=== PATIENT | female | born 1980 | race Caucasian/White ===

== ENCOUNTER → 2020-10-23 14:15 | Outpatient (CLI) | payer OTHER, SELFPAY ==
--- NOTE | ~2020-10-23 | MM_ITS ---
EXAMINATION: MM screening gary BI w ameya HISTORY: Screening mammogram TECHNIQUE: Craniocaudal and mediolateral oblique 3-D tomosynthesis images were obtained and synthetic 2-D images were generated. CAD analysis was submitted and interpreted. COMPARISON: No prior mammogram is available for comparison at this institution. BREAST PARENCHYMAL COMPOSITION: There are scattered areas of fibroglandular density. FINDINGS: There is no evidence of suspicious mass, calcification, or architectural distortion to sugg est malignancy in either breast. There has been no suspicious interval change. IMPRESSION: 1. No mammographic evidence of malignancy. 2. Recommend routine screening mammography in one year. BI-RADS Category 1: Negative Reviewed, dictated and finalized at location A.
== END ==
PROVIDERS: Visit Provider Student in an Organized Health Care Education/Training Program
DX: Z12.31 Encounter for screening mammogram for malignant neoplasm of breast (principal)
CPT/HCPCS: 77063; 77067

== ENCOUNTER → 2021-10-17 07:48 | Outpatient (CLI) | payer OTHER, SELFPAY ==
--- NOTE | ~2021-10-17 | MMUS_ITS ---
EXAMINATION: MM diagnostic gary BI w ameya, US axilla BI HISTORY: Bilateral axillary lymphadenopathy TECHNIQUE: Craniocaudal, mediolateral, and mediolateral oblique 3-D tomosynthesis images of the breas ts were performed and synthetic 2-D images were generated. CAD analysis was submitted and interpreted . High resolution bilateral axillary ultrasound was performed. COMPARISON: 10/23/2020 BREAST PARENCHYMAL COMPOSITION: There are scattered areas of fibroglandular density. FINDINGS: MAMMOGRAPHIC FINDINGS: There is no suspicious mass, calcification, or architectural distortion in either breast to suggest malignancy. There has been no suspicious interval change. No pathologically enlarged nodes are identi fied. ULTRASOUND: No suspicious cystic or solid mass or pathologically enlarged lymph nodes are identified. One small h ypoechoic area in the right axilla has an appearance suggestive of a mildly inflamed sebaceous cyst. IMPRESSION: 1. No suspicious mammographic or sonographic correlate is identified for the reported palpable abnorm ality of concern. Further evaluation at this time should be based on clinical assessment. Continued f ollow-up physical examination is recommended. 2. Recommend routine screening mammography in one year. BI-RADS Category 2: Benign finding(s). Reviewed, dictated and finalized at location A. IMPRESSION: 1. No suspicious mammographic or sonographic correlate is identified for the re ported palpable abnormality of concern. Further evaluation at this time should be based on clinical assessment. Continued follow-up physical examination is re commended. 2. Recommend routine screening mammography in one year. BI-RADS Category 2: Benign finding(s).
== END ==
PROVIDERS: PCP Family Medicine; Visit Provider Nurse Practitioner Family
DX: R59.0 Localized enlarged lymph nodes (principal)
CPT/HCPCS: 76882; 77062; 77066; G0279

== ENCOUNTER 2022-02-07 10:15 | Outpatient (CLI) | payer OTHER, SELFPAY ==
--- NOTE | 2022-02-07 11:30 | NEURO_ITS ---
Impression: # Complains of numbness of hands. # Left Carpal Tunnel Syndrome. # Normal needle/EMG exam. Nerve Conduction Studies Anti Sensory Summary Table Stim Site NR Peak (ms) P-T Amp (?V) Site1 Site2 Delta-P (ms) Dist (cm) Alfonso (m/s) Left Median Anti Sensory (2-3nd Digit) Wrist 4.3 28.7 Wrist 2-3nd Digit 4.3 14.0 33 Wrist 4.5 37.2 Wrist 2-3nd Digit 4.3 14.0 33 Right Median Anti Sensory (2-3nd Digit) Wrist 3.3 74.9 Wrist 2-3nd Digit 3.3 14.0 42 Wrist 3.4 55.4 Wrist 2-3nd Digit 3.3 14.0 42 Left Radial Anti Sensory (Base 1st Digit) Wrist 1.9 24.2 Wrist Base 1st Digit 1.9 0.0 Right Radial Anti Sensory (Base 1st Digit) Wrist 2.1 28.5 Wrist Base 1st Digit 2.1 0.0 Left Ulnar Anti Sensory (5th Digit) Wrist 2.3 59.6 Wrist 5th Digit 2.3 14.0 61 Right Ulnar Anti Sensory (5th Digit) Wrist 1.9 41.2 Wrist 5th Digit 1.9 14.0 74 Motor Summary Table Stim Site NR Onset (ms) O-P Amp (mV) Site1 Site2 Delta-0 (ms) Dist (cm) Alfonso (m/s) Left Median Motor (Abd Poll Brev) Wrist 4.5 1.9 Elbow Wrist 5.5 30.0 55 Elbow 10.0 2.2 Right Median Motor (Abd Poll Brev) Wrist 3.4 3.5 Elbow Wrist 5.2 29.0 56 Elbow 8.6 2.4 Left Ulnar Motor (Abd Dig Minimi) Wrist 2.1 9.8 A Elbow Wrist 5.1 28.0 55 A Elbow 7.2 8.9 Right Ulnar Motor (Abd Dig Minimi) Wrist 2.3 8.8 A Elbow Wrist 5.1 29.0 57 A Elbow 7.4 7.8 F Wave Studies NR F-Lat (ms) L-R F-Lat (ms) Left Median (Mrkrs) (Abd Poll Brev) 27.50 0.00 Right Median (Mrkrs) (Abd Poll Brev) 27.50 0.00 Left Ulnar (Mrkrs) (Abd Dig Min) 26.38 0.63 Right Ulnar (Mrkrs) (Abd Dig Min) 25.74 0.63 EMG Side Muscle Nerve Root Ins Act Fibs Amp Dur Recrt Comment Right 1stDorInt Ulnar C8-T1 Nml Nml Nml Nml Nml Right Ext Indicis Radial (Post Int) C7-8 Nml Nml Nml Nml Nml Right Ext Digitorum Radial (Post Int) C7-8 Nml Nml Nml Nml Nml Right BrachioRad Radial C5-6 Nml Nml Nml Nml Nml Right PronatorTeres Median C6-7 Nml Nml Nml Nml Nml Right Abd Poll Brev Median C8-T1 Nml Nml Nml Nml Nml Left 1stDorInt Ulnar C8-T1 Nml Nml Nml Nml Nml Left Ext Indicis Radial (Post Int) C7-8 Nml Nml Nml Nml Nml Left Ext Digitorum Radial (Post Int) C7-8 Nml Nml Nml Nml Nml Left BrachioRad Radial C5-6 Nml Nml Nml Nml Nml Left PronatorTeres Median C6-7 Nml Nml Nml Nml Nml Left Abd Poll Brev Median C8-T1 Nml Nml Nml Nml Nml MTDD
== END 2022-02-07 10:16 | disposition home or self-care (01) ==
PROVIDERS: PCP Family Medicine; Visit Provider Nurse Practitioner Family
DX: R20.2 Paresthesia of skin (principal); G56.22 Lesion of ulnar nerve, left upper limb
CPT/HCPCS: 95886; 95911

== ENCOUNTER 2022-04-15 08:42 | Emergency (ER) | payer OTHER, SELFPAY ==
--- NOTE | 2022-04-15 08:51 | ED.URI ---
HPI - URI/Sore Throat General Chief Complaint: Upper Respiratory Infection Stated Complaint: sore throat,cough,congestion,fever Time Seen by Provider: 04/15/22 08:51 Source: patient, RN notes reviewed and old records reviewed Mode of arrival: ambulatory Limitations: no limitations History of Present Illness HPI Narrative: 41-year-old female presents to the [facility] with complaints of sore throat, cough, congestion and fever since Friday, 3 days. Patient reports a fever of 102 and it goes away with Tylenol. Has taken some decongestants. Denies any chest pain or abdominal pain Patient has drainage from the left eye. Normally wears contact lenses but has not been since symptoms started. MD elicited complaint: fever, cough and sore throat Onset (ago): day(s) (3) Able to tolerate fluids by mouth: Yes Associated symptoms: fever and cough Related Data Home Medications Medication Instructions Recorded Confirmed melatonin 5 mg capsule mg PO QHS PRN 10/11/20 04/04/22 omeprazole 10 mg capsule,delayed 10 mg PO DAILY 10/11/20 04/04/22 release Allergies Allergy/AdvReac Type Severity Reaction Status Date / Time No Known Allergies Allergy Verified 04/04/22 07:55 Review of Systems Review of Systems: All systems reviewed & are unremarkable except as noted in HPI and below Constitutional: Constitutional: Reports as per HPI, Denies chills and Reports fever(s) Eyes: Eyes: Reports no additional eye complaints ENT: Reports as per HPI, Reports nasal congestion and Reports sore throat Cardiovascular: Cardiovascular: Reports no additional cardiovascular complaints Respiratory: Respiratory: Reports as per HPI and Reports cough Gastrointestinal: Gastrointestinal: Reports no additional gastrointestinal complaints Musculoskeletal: Musculoskeletal: Reports no additional musculoskeletal complaints Integumentary/Breasts: Skin/Breast: Reports system reviewed and no additional complaints, except as docu Neurologic: Reports system reviewed and no additional complaints, except as documented Psychiatric: Psychiatric: Reports no additional psychiatric complaints Allergic/Immunologic: Allergic/Immunologic: Reports no additional allergic/immunologic complaints PMFSH Past Medical History Medical History Carpal tunnel syndrome, left Environmental allergies Fast heart beat Poor nutrition Surgical History Surgical History History of appendectomy Family History Family History Father Diabetes mellitus Hypertension Heart disease Mother Hypertension Depression Heart disease Diabetes mellitus Sibling Depression Hypertension Grandparent Alcoholism Depression Cerebrovascular accident Social History Social History Smoking status: Never smoker Second hand tobacco smoke exposure: No Alcohol intake: current Substance use: never Substance use type: does not use 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 There is no relevant family history pertinent to the patient complaint. Exam Const: General: healthy appearing, no acute distress and alert Nutritional Appearance: well nourished Orientation/consciousness: patient oriented x3 Limitations: no limitations HENMT: Head: normal to inspection Ears: external ears normal, TM's normal bilaterally and EAC's normal General nose exam: Normal external nose present and Normal nares present Face and sinus: normal facial exam Mouth: Yes Normal oral and palatal mucosa present Throat: posterior oropharynx normal, uvula midline and no uvular edema Eyes: Genera
[2022-04-15 08:54] VITALS: BP 125/80; PULSE 90; RESP 16; TEMP 36.4; O2SAT 99
== END 2022-04-15 09:17 | disposition home or self-care (01) ==
PROVIDERS: Emergency Provider Nurse Practitioner; PCP Family Medicine
DX: H10.32 Unspecified acute conjunctivitis, left eye (principal); J02.0 Streptococcal pharyngitis; Z20.822 Contact with and (suspected) exposure to COVID-19
CPT/HCPCS: 87426; 87880; 99213; C9803; G0463

== ENCOUNTER 2022-04-16 10:16 | Emergency (ER) | payer OTHER, SELFPAY ==
--- NOTE | 2022-04-16 10:19 | ED.EAR ---
HPI - Ear Problem General Chief complaint: Ear Stated complaint: ear pain Time Seen by Provider: 04/16/22 10:19 Source: patient and RN notes reviewed History of Present Illness HPI Narrative: Patient is a 41-year-old female who presents the urgent care with complaints of left ear pain and drainage. Patient was seen at [facility] yesterday and placed on amoxicillin for positive strep test. Patient states she has been taking the medication but is continued to have the ear pain. Patient states that she has been taking Tylenol for the ear pain. States that the sore throat has resolved. No other acute complaints. No acute distress noted. Patient aware of the plan of care. Some parts of this dictation were generated by voice recognition software and may contain typographical and/or grammatical inaccuracies. Related Data Home Medications Medication Instructions Recorded Confirmed bupropion HCl 150 mg 24 hr tablet, 150 mg PO DAILY 04/16/22 04/16/22 extended release venlafaxine 150 mg 150 mg PO DAILY 04/16/22 04/16/22 capsule,extended release 24 hr Allergies Allergy/AdvReac Type Severity Reaction Status Date / Time No Known Allergies Allergy Verified 04/16/22 10:27 Review of Systems Review of Systems: CONSTITUTIONAL: Denies fever, chills, or sweats. EYES: Denies visual changes, redness, or discharge. ENT: Denies rhinorrhea, congestion, sore throat. Reports of left otalgia and drainage CARDIOVASCULAR: Denies chest pain, palpitations, or edema. RESPIRATORY: Denies cough or dyspnea. GASTROINTESTINAL: Denies abdominal pain, nausea, vomiting, or diarrhea. GENITOURINARY: Denies dysuria or hematuria. SKIN: Denies rash or itching. MUSCULOSKELETAL: Denies back pain, joint pain, or myalgia. NEUROLOGIC: Denies headache, numbness, or weakness. All other systems reviewed are negative, except as documented in HPI. [facility] Past Medical History Medical History Carpal tunnel syndrome, left Environmental allergies Fast heart beat Poor nutrition Surgical History Surgical History History of appendectomy Family History Family History Father Diabetes mellitus Hypertension Heart disease Mother Hypertension Depression Heart disease Diabetes mellitus Sibling Depression Hypertension Grandparent Alcoholism Depression Cerebrovascular accident Social History Social History Smoking status: Never smoker Second hand tobacco smoke exposure: No Alcohol intake: current Substance use: never Substance use type: does not use 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 There is no relevant family history pertinent to the patient complaint. Exam Narrative: GENERAL: This is a well-nourished, well-developed patient, in no apparent distress. HEAD: normocephalic, atraumatic. EYES: PERRL. Sclera clear/white. Vision is grossly intact. EARS: External ears normal, scant clear drainage from left auditory canal. Right auditory canals clear and without drainage, very mild erythema noted to the left TM without perforation. Right TM within normal limits Hearing grossly intact. NOSE: External nose normal with no obvious nasal discharge, nares without redness, no rhinorrhea. THROAT: Mucous membranes moist, posterior pharynx clear. Mild postnasal drainage NECK: Neck supple, non-tender without lymphadenopathy CARDIOVASCULAR: Regular rate and rhythm without murmurs, gallops, or rubs. RESPIRATORY: Clear to auscultation. Breath sounds equal bilaterally. No wheezes, rales, or rhonchi. SKIN: warm, intact with no s
[2022-04-16 10:20] VITALS: BP 131/83; PULSE 76; RESP 18; TEMP 36.4; O2SAT 100
== END 2022-04-16 10:38 | disposition home or self-care (01) ==
PROVIDERS: Emergency Provider Nurse Practitioner Family; PCP Family Medicine
DX: H92.02 Otalgia, left ear (principal)
CPT/HCPCS: 99211; G0463

== ENCOUNTER 2022-04-22 14:00 | Outpatient (RCR) | payer OTHER, SELFPAY ==
--- NOTE | 2022-03-04 14:30 | OTOPEVAL ---
INITIAL OCCUPATIONAL THERAPY EVALUATION: 03/04/2022 Yvonne is a 41 year old Female who is L hand dominant presenting to Outpatient Occupational Therapy with Carpal Tunnel Syndrome of L hand and Cubital tunnel symptoms of R hand. Patient reports difficulties with completing daily/work tasks including typing, holding a book, driving resulting in numbness/tingling and pain symptoms. Patient demonstrated positive phalens test, tinnels test over carpal tunnel indicative of carpal tunnel syndrome on L UE. On R UE patient demonstrates a positive elbow flexion test and tinnels over cubital tunnel indicative of cubital tunnel syndrome. Bilateral UE Knocker Out and pinch strengths are WFL, in addition to sensation of bilateral UE tested through 2 point discrimination was normal except for L index finger rating 6mm and R small finger rating 6mm. Today she was instructed in activity modification to apply in daily life/work tasks in addition to ulnar/median nerve glides to facilitate decreasing numbness/tingling in R digits 4-5 and L digits 1-3. Patient was educated on use of wrist cock up splint for L UE during sleep and work tasks. We plan to follow up in 3 weeks for a re-assessment of her progress. Thank you for referring Yvonne Marques to [facility].? The patient is scheduled to be seen for therapy? 0-1x/week for 7 weeks. Please review, sign, date and return this plan of care MANUEL. I agree with and certify that the following plan of care is medically necessary. Referring Physician Date Attending Provider: Jeremiah Johnson MD *OT Outpatient Evaluation Start: 03/04/22 12:59 Freq: Status: Active Protocol: Document 03/04/22 12:59 KJL (Rec: 03/04/22 14:29 KJL [id number]) Therapy Assessment Status Assessment Status Evaluation Evaluation Information Problem Diagnosis Carpal Tunnel Syndrome L hand Additional Evaluation Detail Beginning in October/November of 2021 numbness/tingling, hand pain. Patient went to Dr. Johnson and received a EMG study showing L carpal tunnel. Patient reports also having numbness and tingling less severely on R hand in the ring and small finger. Subjective Information Patient reports when numbness/ Query Text:As Reported By Patient/ tinging and pain is so painful Family that completing work tasks including typing, using a mouse (reports has switched to a tracker ball), using phone. 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 Prior Level of Function Activity Level (Last 3 Months) Hand Dominance Left Activity of Daily Living Ability Independent Indoor/Home Mobility Independent Community Mobility
--- NOTE | 2022-04-01 13:41 | OTOPPROG ---
Evaluation Information Assessment Status Re-evaluation Assessment OT Clinical Summary Yvonne is a 41 year old Female who is L hand dominant is referred to Outpatient Occupational Therapy with symptoms of Carpal Tunnel Syndrome of L hand and symptoms of Cubital tunnel symptoms of R hand. At her first appointment she was educated on carpal tunnel syndrome and ulnar compression syndrome, splinting for reducing nerve compression during work/sleep, and optimal UE positioning to reduce nerve compression and repetitive strain with ADLs and work tasks. Overall she reports good progress in just three weeks with R UE ulnar compression symptoms but less progress with L UE carpal tunnel symptoms reporting increased pain after work tasks. With R UE ulnar nerve compression she states the paresthesias are now just localized to the small finger and not both the ring and small finger. She states there is less tingling as well in the R UE small finger. She reports increased pain and numbness of L UE thumb, index and long finger with daily tasks. 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 At this time it is recommended that she continue with these conservative measures as well as progress median nerve glides and HEP materials as tolerated. Will follow up with her again in 2 weeks to assess her progress and to discuss her appointment with the orthopedic surgeon. Plan of Care OT Services Indicated Yes These treatments will address the objective and functional deficits as defined above. The patient will be advanced safely and appropriately in order for the patient to progress towards his/her prior level of function. Additional exercises will be introduced and as well as a comprehensive home exercise program upon discharge, if needed, ?to ensure carryover of functional gains achieved in the clinic. This treatment plan has been reviewed and agreement upon by the patient.
--- NOTE | 2022-04-15 11:50 | PCOTNOTE ---
Patient unable to come to appointment on this date due to illness, patient was rescheduled for Friday04/22/2022 for OT re-evaluation.
--- NOTE | 2022-04-22 14:39 | OTOPDC ---
Assessment and note entered by FREDDY Godfrey/Kareem Evaluation Information Assessment Status Evaluation Diagnosis CTS L UE, Ulnar compression symptoms on R UE Reported Pain Level Pain Score 0,3: Self Report Assessment OT Clinical Summary Yvonne is a 41 year old Female who is L hand dominant is referred to Outpatient Occupational Therapy with symptoms of Carpal Tunnel Syndrome of L hand and ulnar compression symptoms of R hand. She has been working on conservative measures to help reduce L UE Carpal Tunnel syndrome and R UE ulnar nerve compression - night bracing, nerve glides, and better UE positioning at work. She has made excellent progress in the last 7 weeks with R UE ulnar compression symptoms are no longer noticeable. Strength of R UE is normal. Despite 7 weeks of implementing conservative measurements, patient's L UE carpal tunnel symptoms have not made much progress and patient plans to proceed with a carpal tunnel release surgery by Dr. Johnson on 04/29/2022. Plan to have the patient continue to work on these conservative measures with R UE independently at this time. Discharging from skilled OT with HEP. Plan of Care OT Services Indicated No
== END 2022-05-08 09:12 | disposition home or self-care (01) ==
LOC: ANHGOSHOT 14:00
PROVIDERS: PCP Family Medicine; Visit Provider Orthopaedic Surgery
DX: R20.0 Anesthesia of skin (principal)
CPT/HCPCS: 97110; 97165

== ENCOUNTER 2022-04-25 12:21 | Outpatient (CLI) | payer OTHER, SELFPAY ==
--- NOTE | 2022-04-25 12:31 | ECG_ITS ---
Measurements Intervals [place] Rate: 76 P: 21 ME: 144 QRS: 30 QRSD: 108 T: 30 QT: 380 QTc: 429 Interpretive Statements SINUS RHYTHM INCOMPLETE RIGHT BUNDLE BRANCH BLOCK NO PREVIOUS ECG AVAILABLE FOR COMPARISON Electronically Signed On 04-25-2022 17:32:58 CDT by Tripp Trevino M.D.
== END 2022-04-25 12:22 | disposition home or self-care (01) ==
LOC: ANHSURGERY 12:25
PROVIDERS: PCP Family Medicine; Visit Provider Orthopaedic Surgery
DX: R00.0 Tachycardia, unspecified (principal); Z01.818 Encounter for other preprocedural examination; I45.10 Unspecified right bundle-branch block
CPT/HCPCS: 93005

== ENCOUNTER 2022-04-29 02:18 | Day surgery (SDC) | payer OTHER, SELFPAY ==
[2022-04-22 16:10] VITALS: BMI 37.8
--- NOTE | 2022-04-22 16:30 | SUR.PREOP ---
Report to the Outpatient Waiting Room, entrance under the green pavilion located off [facility], at time 0830 on date 04/29/2022. OR Time: 1030. Time changes happen often and if your time is changed the preop area will call you the afternoon before. - You and your visitor will be asked to self-screen and do not enter if you have any COVID symptoms. - Only one visitor and NO children visitors are allowed at this time. - The patient visitor is requested to leave or wait in car when not with patient due to restrictions. - A mask is required within the hospital. Patients may have clear liquids (water, carbonated beverages, clear teas, apple juice) until 3 hours prior to surgery (0730) with a maximum of 20 ounces. - No food from midnight until time of surgery - Infants may have breast milk until 4 hours before surgery, infant formula 6 hours prior to surgery. - Children will be allowed to drink immediately following surgery. If applicable, please bring a bottle or sippy cup to assist with drinking. Juice, water, soda, and popsicles are readily available. For infants on formula, please bring formula the day of surgery. Pacifiers are allowed. Take the following medications with a SIP of water the morning of surgery: Carvedilol, Buproprion, Venlafaxine Medications to discontinue per physician: Clarify with Dr. Johnson continuing Mobic or not Date to take last dose: Clarify with Dr. Johnson Please no make-up, nail wolof, hairspray, perfume, deodorant, or body powder the day of surgery. No jewelry (including any body piercings) or valuables the day of surgery, leave them at home. Please take a shower or bath the night before, or the morning of, surgery with an antibacterial soap. Wear comfortable, loose fitting clothing. Children are encouraged to wear pajamas. - Jewelry must be removed prior to entering the operating room. Rings and piercings that are not removed may be cut off. - The hospital will not accept responsibility for valuables. - Please leave all valuables, including medications, at home the day of surgery. If you are going home after surgery, a licensed p d driver must drive you home. - NO public transportation without another adult. - We recommend that an adult stay with you for 24 hours following discharge. - We also recommend that you do not drive, make important decision, drink alcoholic beverages, or take any drugs that were not prescribed by your health care provider for at least 24 hours after your discharge time. For Pediatric surgeries, we recommend two adults accompany the child home (only one inside the building at this time). Follow any additional instructions given to you from your surgeon. If you or anyone in your household have experienced Covid symptoms in the past week, please notify your surgeon or the nurse liaison at the phone number below for possible testing. Telephone instructions given to ___patient and asked if any additional questions and then verbalized understanding. Patient advised to call surgeon office or pre surgery nurse liaison [phone] if any additional questions.
[2022-04-29 08:42] VITALS: BP 140/82; PULSE 84; RESP 16; TEMP 36.3; O2SAT 97
[2022-04-29] MEDS: ACETAMINOPHEN 500 MG TABLET 1000 MG PO (09:02)
[2022-04-29] MEDS: LACTATED RINGERS 1,000 ML 30 ML IV CONT (09:17)
[2022-04-29] MEDS: KETOROLAC 15 MG/ML VIAL (*BKC) IV PUSH (09:18)
--- NOTE | 2022-04-29 09:23 | WPDANESEPPF ---
Anes - Initial Pre Proc Eval Procedure: Operation Date: 04/29/22 10:30 Proposed Procedures p Left Carpal Tunnel Release - Jeremiah Johnson MD Date/Time: 04/29/22 09:23 Surgeon: Jeremiah Johnson MD Pre Op Diagnosis: left carpal tunnel syndrome Patient Data Age: 41 Gender: F Height: 1.63 m Weight: 99.55 kg Last Vital Signs Temp 36.3 C L 04/29/22 08:42 Pulse 84 04/29/22 08:42 Resp 16 04/29/22 08:42 BP 140/82 04/29/22 08:42 Pulse Ox 97 04/29/22 08:42 O2 Del Method Room Air 04/29/22 08:42 Allergies Allergy/AdvReac Type Severity Reaction Status Date / Time No Known Allergies Allergy Verified 04/29/22 08:54 Home Medications Medication Instructions Recorded Confirmed Type carvedilol 25 mg tablet 25 mg PO Q12H #180 tabs 03/02/22 04/29/22 Rx meloxicam 15 mg tablet 15 mg PO DAILY #30 tabs 03/05/22 04/29/22 Rx venlafaxine 150 mg 150 mg PO DAILY 04/16/22 04/29/22 History capsule,extended release 24 hr melatonin 10 mg tablet 10 mg PO HS PRN Insomnia 04/22/22 04/29/22 History bupropion HCl 150 mg 24 hr tablet, 150 mg PO DAILY #90 tabs 04/24/22 04/29/22 Rx extended release Patient hx anesthesia problems: none Family hx anesthesia problems: none Results Review: All pre-operative results and documents have been reviewed as part of the pre-operative evaluation. [facility] Past Medical History Medical History Anxiety Carpal tunnel syndrome, left Depression Environmental allergies Fast heart beat Migraine without aura and with status migrainosus, not intractable Poor nutrition Tachyarrhythmia Surgical History Surgical History History of appendectomy Family History Family History Father Diabetes mellitus Hypertension Heart disease Mother Hypertension Depression Heart disease Diabetes mellitus Sibling Depression Hypertension Grandparent Alcoholism Depression Cerebrovascular accident Social History Social History Smoking status: Never smoker Second hand tobacco smoke exposure: No Alcohol intake: current Alcohol use details: rare- socially every couple weeks Substance use: never Substance use type: does not use Living arrangements: with family Additional occupation/education comments: [employer] Gender identity (if verbalized by the patient): Female Spiritual care concerns: No Anes - Eval Final PreProcedure Day of Procedure 04/29/22 09:23 Patient weight: obese Heart: regular rate and rhythm Lungs: clear to auscultation Airway: Mallampati scale class II Neurological: alert and oriented Last oral intake: >/= 8 hours ASA classification: III Emergent: no Anesthetic plan: proceed Anesthesia type and monitoring: general GIVS and standard monitoring Results Review: All pre-operative results and documents have been reviewed as part of the pre-operative evaluation. Informed Consent: The patient's anesthetic plan and its attendant risks and benefits were discussed with the patient/family/POA. Questions were solicited and answers provided to the satisfaction of the patient/family/POA.
--- NOTE | 2022-04-29 09:56 | WPDHPUPDATE1 ---
History and Physical Update Update Date/Time: 04/29/22 09:56 History and Physical has been reviewed, including an updated exam of the patient. There are NO changes in the patient's condition. Risks, benefits, and alternatives have been discussed and questions answered. Patient agrees to proceed with procedure.
[2022-04-29] MEDS: ceFAZolin 2 GM/D5W 50 ML 2 GM/50 ML BAG IVPB (10:48)
[2022-04-29] MEDS: BUPIVACAINE/EPINEPHRINE 0.25% 50 ML VIAL 30 ML INFILTRATE (11:15)
[2022-04-29 11:20] VITALS: BP 115/65; PULSE 75; RESP 14; O2SAT 97
--- NOTE | 2022-04-29 11:23 | P.OP_ITS ---
Procedure Note - Detailed Date of Procedure 04/29/22 Pre-op Diagnosis left carpal tunnel syndrome Post-op Diagnosis Same Procedure Performed Left carpal tunnel release Surgeon Jeremiah Johnson MD [employer] J[employer] Anesthesia MAC and Local Description of Procedure The patient was identified and proper side identified. After being taken to the operating room and transferred to the OR table, a nonsterile tourniquet was placed high on the left upper extremity, which was prepped and draped in the usual sterile fashion. After IV sedation was administered, the subcutaneous tissue in the area of the incision was infiltrated with several cc of 0.25% Marcaine and epinephrine solution. The extremity was exsanguinated and tourniquet inflated to 250 mmHg remaining up for approximately 4 minutes. A longitudinal incision was over the ulnar aspect of the transverse carpal ligament. Subcutaneous tissue was bluntly dissected down to the ligament, which was identified and then transected longitudinally in line with the incision releasing the contents of the carpal canal. The tourniquet was released. Hemostasis was carried out with bipolar electrocautery. The median nerve had appropriate blush with reperfusion. The wound was irrigated with sterile saline solution. Skin edges were reapproximated with four 0 nylon suture and a sterile dressing was applied. A well-padded volar wrist splint was fashioned with the wrist in a neutral position. Estimated Blood Loss 1 Tourniquet Time 4 Drains No Packing No Pathology None sent Complications No immediate complications Condition Stable Disposition PACU
[2022-04-29 12:10] VITALS: PULSE 78; RESP 14
== END 2022-04-29 12:28 | disposition home or self-care (01) ==
PROVIDERS: PCP Family Medicine; Visit Provider Orthopaedic Surgery
PROC: (CPT 64721; principal; 2022-04-29 10:30)
DX: G56.02 Carpal tunnel syndrome, left upper limb (principal); R00.0 Tachycardia, unspecified; F41.9 Anxiety disorder, unspecified; F32.A Depression, unspecified; E66.9 Obesity, unspecified; Z68.37 Body mass index [BMI] 37.0-37.9, adult
CPT/HCPCS: 64721; 93005; A9270; J0690; J1100; J1885; J2250; J2405; J2704; J3010; J7120

== ENCOUNTER 2022-10-07 07:34 | Outpatient (CLI) | payer OTHER, SELFPAY ==
--- NOTE | ~2022-10-07 | NM_ITS ---
EXAMINATION: NM hepatobiliary wo pharm DATE: 10/07/2022 09:55 INDICATION: Abdominal pain COMPARISON: None. TECHNIQUE: 4.9 mCi Tc-99m mebrofenin (Choletec) was administered intravenously. Scintigraphic images of the abdomen were obtained for one hour. At the 1 hour time point, the patient drank 8 oz Ensure, and imaging was continued for 60 minutes. Gallbladder ejection fraction was calculated by the technol ogist. FINDINGS: There is normal clearance of radiotracer from the blood pool. There is homogeneous tracer u ptake by the liver. Activity progresses to the bowel and gallbladder. The gallbladder ejection fract ion (GBEF) is 78%. Note that with this technique, normal GBEF >= 33%. IMPRESSION: 1. Normal hepatobiliary scan Reviewed, dictated and finalized at location A.
== END 2022-10-07 07:35 | disposition home or self-care (01) ==
PROVIDERS: PCP Family Medicine; Visit Provider Nurse Practitioner Family
DX: K80.20 Calculus of gallbladder without cholecystitis without obstruction (principal)
CPT/HCPCS: 78226; A9537

== ENCOUNTER → 2023-02-21 07:24 | Outpatient (CLI) | payer OTHER, SELFPAY ==
--- NOTE | ~2023-02-21 | MM_ITS ---
EXAMINATION: MM screening [facility] BI w ameya HISTORY: Screening mammogram TECHNIQUE: Craniocaudal and mediolateral oblique 3-D tomosynthesis images were obtained and synthetic 2-D images were generated. CAD analysis was submitted and interpreted. COMPARISON: 10/17/2021 bilateral diagnostic and 10/23/2020 bilateral screening mammogram examinations BREAST PARENCHYMAL COMPOSITION: There are scattered areas of fibroglandular density. FINDINGS: There is no evidence of suspicious mass, calcification, or architectural distortion to sugg est malignancy in either breast. There has been no suspicious interval change. IMPRESSION: 1. No mammographic evidence of malignancy. 2. Recommend routine screening mammography in one year. BI-RADS Category 1: Negative Reviewed, dictated and finalized at location A.
== END ==
PROVIDERS: PCP Family Medicine; Visit Provider Registered Nurse
DX: Z12.31 Encounter for screening mammogram for malignant neoplasm of breast (principal)
CPT/HCPCS: 77063; 77067

== ENCOUNTER 2023-10-02 13:00 | Emergency (ER) | payer OTHER, SELFPAY ==
[2023-10-02 13:07] VITALS: BP 123/77; PULSE 80; RESP 20; TEMP 36.7; O2SAT 100
--- NOTE | 2023-10-02 13:23 | ED.GENADULT ---
HPI - General Adult General Chief complaint: Urogenital-Female Stated complaint: Poss UTI Source: patient, RN notes reviewed and old records reviewed Mode of arrival: ambulatory Limitations: no limitations History of Present Illness HPI narrative: 43-year-old female presents to [facility] with complaints of urinary urgency and burning with urination that started 1-2 days ago. Patient denies any abdominal pain, vomiting, fever, back pain. Related Data Home Medications Medication Instructions Recorded Confirmed melatonin 10 mg tablet 10 mg PO HS PRN Insomnia 04/22/22 10/02/23 sertraline 100 mg tablet 100 mg PO DAILY 06/09/23 10/02/23 venlafaxine 75 mg capsule,extended 75 mg PO DAILY 10/02/23 10/02/23 release 24 hr Allergies Allergy/AdvReac Type Severity Reaction Status Date / Time No Known Allergies Allergy Verified 10/02/23 13:22 Review of Systems Constitutional: Constitutional: Reports no additional constitutional complaints, Denies body ache(s), Denies chills, Denies fatigue, Denies fever(s) and Denies headache(s) Eyes: Eyes: Reports no additional eye complaints and Denies blurry vision ENT: Reports system reviewed and no additional complaints, except as documented, Denies vertigo, Denies dizziness, Denies ear discharge, Denies otalgia, Denies facial pain, Denies headache(s), Denies nasal congestion, Denies nasal discharge, Denies sinus pain, Denies sinus pressure and Denies sore throat Cardiovascular: Cardiovascular: Reports no additional cardiovascular complaints, Denies chest pain, Denies chest pain at rest, Denies rapid heart rate and Denies dyspnea Respiratory: Respiratory: Reports no additional respiratory complaints, Denies chest congestion, Denies cough, Denies pain on inspiration, Denies pain with cough and Denies dyspnea Gastrointestinal: Gastrointestinal: Denies abdominal pain, Denies diarrhea, Denies nausea and Denies vomiting Genitourinary: Genitourinary: Reports nocturia, Reports dysuria and Reports urinary urgency Integumentary/Breasts: Skin/Breast: Denies rash Neurologic: Reports system reviewed and no additional complaints, except as documented, Denies vertigo, Denies dizziness and Denies headache(s) Endocrine: Endocrine: Denies fatigue PMF Past Medical History Medical History Anxiety BMI over 35 Depression Environmental allergies Fast heart beat Inflammatory arthritis Migraine without aura and with status migrainosus, not intractable Poor nutrition Tachyarrhythmia Surgical History Surgical History Carpal tunnel syndrome, left Carpal tunnel release April 29, 2022 History of appendectomy Family History Family History Father Diabetes mellitus Hypertension Heart disease Mother Hypertension Depression Heart disease Diabetes mellitus Sibling Depression Hypertension Grandparent Alcoholism Depression Cerebrovascular accident Social History Social History Smoking status: Never smoker Second hand tobacco smoke exposure: No Alcohol intake: current Alcohol use details: rare- socially every couple weeks Substance use: never Substance use type: does not use Do You Feel Safe in your Home?: Yes Lack of Transportation: No Lack of Food: Never True Current Housing: I Have Housing Concerned About Future Housing: No Difficulty Paying Gas/Electric Bills: No Difficulty Paying for Meds: No Currently Unemployed: No Education: Master's Degree or Higher Difficulty w/ Childcare or Family Care: No Living arrangements: with family Occupation/Education: occupation 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
[2023-10-02 13:25] VITALS: TEMP 36.7
== END 2023-10-02 13:28 | disposition home or self-care (01) ==
PROVIDERS: Emergency Provider Registered Nurse; PCP Family Medicine
DX: N30.01 Acute cystitis with hematuria (principal); B96.20 Unspecified Escherichia coli [E. coli] as the cause of diseases classified elsewhere; F41.9 Anxiety disorder, unspecified; F32.A Depression, unspecified
CPT/HCPCS: 81003; 87077; 87086; 87088; 87186; 99213; G0463

== ENCOUNTER 2024-05-27 14:10 | Outpatient (CLI) | payer OTHER, SELFPAY ==
--- NOTE | ~2024-05-27 | MM_ITS ---
EXAMINATION: MM screening [facility] BI w ameya HISTORY: Screening TECHNIQUE: Craniocaudal and mediolateral oblique 3-D tomosynthesis images were obtained and synthetic 2-D images were generated. CAD analysis was submitted and interpreted. COMPARISON: Comparison to multiple prior studies sequentially, with oldest reviewed study dated 11/2020. BREAST PARENCHYMAL COMPOSITION: Not Dense: The breasts are almost entirely fatty. FINDINGS: There is no evidence of suspicious mass, calcification, or architectural distortion to sugg est malignancy in either breast. There has been no suspicious interval change. IMPRESSION: 1. No mammographic evidence of malignancy. 2. Recommend routine screening mammography in one year. BI-RADS Category 1: Negative Reviewed, dictated and finalized at location B. [employer]ER
== END 2024-05-27 14:11 | disposition home or self-care (01) ==
LOC: MICIMG 14:11
PROVIDERS: PCP Nurse Practitioner Family; Visit Provider Nurse Practitioner Family
DX: Z12.31 Encounter for screening mammogram for malignant neoplasm of breast (principal)
CPT/HCPCS: 77063; 77067

== ENCOUNTER 2024-11-10 08:42 | Outpatient (CLI) | payer OTHER, SELFPAY ==
--- NOTE | 2024-11-10 09:05 | ECHO_ITS ---
Patient Info Name: Yvonne Marques Age: 44 years : 1980 Gender: Female Ht: 64 in Wt: 205 lbs BSA: 2.09 m2 HR: 77 bpm BP: 129 / 91 mmHg Technical Quality: Good Exam Date: 11/10/2024 9:10 AM Exam Location: Echo Lab Patient Status: Outpatient Admit Date: 11/10/2024 Staff Ordering Physician: Julianne Alfaro Pan Pusher: Negrita Shook RDCS Attending Provider: Julianne Alfaro Referring Physician: Angelina SORIANO; Exam Type: CA echo doppler color flow Study Info Indications I49.9 - Cardiac arrhythmia, unspecified Complete two-dimensional, color flow and Doppler transthoracic echocardiogram is performed. Summary 1. Complete two-dimensional, color flow and Doppler transthoracic echocardiogram is performed. 2. Left ventricular chamber dimension is normal. 3. Left ventricular systolic function is normal, estimated at 60-65%. 4. There is mild concentric increased left ventricular wall thickness. 5. The left ventricular diastolic function is normal. 6. E/e' 8 is minimally elevated. 7. There is trace tricuspid valve regurgitation. 8. No pulmonary hypertension, estimated pulmonary arterial systolic pressure is 25 mmHg. 9. There is trace pulmonic regurgitation. Left Ventricle E/e' 8 is minimally elevated. Left ventricular chamber dimension is normal. Left ventricular systolic function is normal, estimated at 60-65%. There is mild concentric increased left ventricular wall thickness. The left ventricular diastolic function is normal. Right Ventricle Right ventricular systolic function is normal and with normal TAPSE 1.8 cm. Right ventricular chamber dimension is normal. Left Atria Left atrial chamber dimension is normal. Right Atria Right atrial chamber dimension is normal. Aortic Valve The aortic valve is trileaflet. There is no aortic valve stenosis. There is no aortic valve regurgitation. Pulmonic Valve There is trace pulmonic regurgitation. Mitral Valve There is no mitral valve stenosis. There is no mitral valve regurgitation. Tricuspid Valve There is trace tricuspid valve regurgitation. No pulmonary hypertension, estimated pulmonary arterial systolic pressure is 25 mmHg. Pericardium/Pleural There is no pericardial effusion. Inferior Vena Cava Normal inferior vena cava with >50% collapse upon inspiration consistent with normal right atrial pressure, 5 mmHg. Aorta The aortic root size at the sinus of Valsalva is normal. Left Ventricular Outflow Tract Name Value Normal LVOT 2D LVOT Diameter 1.8 cm LVOT Doppler LVOT Peak Gradient 4 mmHg LVOT Mean Gradient 2 mmHg LVOT VTI 20 cm LVOT VTI/AV VTI Ratio 0.7 LVOT Stroke Volume 51 ml LVOT CO 11.0 l/min LVOT CI 5.3 l/min/m2 Pulmonic Valve Name Value Normal PV Doppler PV Peak Gradient 2 mmHg Mitral Valve Name Value Normal MV Doppler MV Decel [place] 388 cm/s2 MV PHT 67 ms MV Area (PHT) 3.3 cm2 4.0-5.0 MV Diastolic Function MV E Peak Velocity 89 cm/s MV A Peak Velocity 62 cm/s MV E/A 1.5 MV Decel Time 230 ms MV Annular TDI MV E/e' (Septal) 10.6 <=8.0 MV E/e' (Lateral) 7.1 <=8.0 MV E/e' (Average) 8.8 Tricuspid Valve Name Value Normal TV Regurgitation Doppler TR Peak Velocity 221 cm/s TR Peak Gradient 20 mmHg Estimated PAP/RSVP RA Pressure 5 mmHg <=5 PA Systolic Pressure 25 mmHg <36 RV Systolic Pressure 25 mmHg <36 Aorta Name Value Normal Ascending Aorta Ao Root Diameter (MM) 2.7 cm Ao Root Diam Index (MM) 1.3 cm/m2 Aortic Valve Name Value Normal AV Doppler AV Peak Velocity 142 cm/s AV Peak Gradient 8 mmHg AV Mean Gradient 4 mmHg AV VTI 28 cm AV Area (Cont Eq VTI) 1.8 cm2 >=3.0 AV Area (Cont Eq Alfonso) 1.7 cm2 AV Regurgitation 2D LVOT Area 2.6 cm2 Ventricles Name Value Normal LV Dimensions 2D/MM IVS Diastolic Thickness (2D) 1.1 cm 0.6-1.0 LVID Diastole (2D) 3.8 cm 3.8-5.2 LVIW Diastolic Thickness (2D) 1.2 cm 0.6-0.9 LVID Systole (2D) 2.7 cm 2.2-3.5 LVOT Diameter 1.8 cm LV Mass (2D Cubed) 141.37 g 67.00-162.00 LV Mass Index (2D Cubed) 68 g/m2 43-95 Relative Wall Thickness (2D) 0.63 LV Fractional Shortening/Ejection Fraction 2D/MM LV Fractional Shortening (2D) 29 % 27-45 LV EF (2D Teichjeniz) 57 % 54-74 LV Diastolic Volume (4C MOD) 78 ml LV EF (4C MOD) 65 % LV Diastolic Volume (2C MOD) 76 ml LV EF (2C MOD) 61 % LV Diastolic Volume (BP MOD) 78 ml 46-106 LV Diastolic Volume Index (BP MOD) 37 ml/m2 29-61 LV Systolic Volume (BP MOD) 29 ml 14-42 LV Systolic Volume Index (BP MOD) 14 ml/m2 8-24 LV EF (BP MOD) 63 % 54-74 LV Diastolic Length (4C) 7.6 cm LV Systolic Length (4C) 6.0 cm LV Stroke Volume (4C MOD) 51 ml RV Dimensions 2D/MM RVID Diastole (2D) 3.1 cm 2.5-3.5 Atria Name Value Normal LA Dimensions LA Dimension (MM) 3.3 cm 2.7-3.8 LA Volume (4C A-L) 45 ml LA Volume (BP A-L) 46 ml RA Dimensions RA Area (4C) 12.6 cm2 <=18.0 Report Signatures
--- NOTE | 2024-11-10 09:09 | EST_ITS ---
Patient Info Name: Yvonne Marques Age: 44 years : 1980 Gender: Female Ht: 64 in Wt: 205 lbs BSA: 2.09 m2 HR: 80 bpm BP: 124 / 84 mmHg Exam Date: 11/10/2024 10:19 AM Exam Location: Echo Lab Patient Status: Outpatient Admit Date: 11/10/2024 Staff Ordering Physician: Julianne Alfaro Attending Provider: Julianne Alfaro Exercise Technologist: Sophia Dumont RDCS Exercise Physician: Del Lopez DO Exam Type: CA stress test treadmill Study Info A treadmill exercise stress test was performed. Summary 1. 1. Negative Herrera exercise stress test for ischemic ST changes by ECG criteria. 2. 2. Reduced functional capacity, achieving 8.9 METs of workload. 3. 3. Appropriate HR response to exercise. 4. 4. Appropriate HR recovery at 1 minute post exercise. 5. 5. No imaging with stress testing. 6. 6. Patient informed of the above results. Protocol: Herrera Stress ECG Details Stage: REST Duration (min): 1 min : 6 sec Speed (mph): 0.0 Grade (%): 0 HR (bpm): 79 SBP (mmHg): 124 DBP (mmHg): 84 METS: --- Stage: REST Duration (min): 8 min : 35 sec Speed (mph): 0.0 Grade (%): 0 HR (bpm): 88 SBP (mmHg): 124 DBP (mmHg): 84 METS: --- Stage: STAGE 1 Duration (min): 1 min : 0 sec Speed (mph): 1.7 Grade (%): 10 HR (bpm): 107 SBP (mmHg): 124 DBP (mmHg): 84 METS: --- Stage: STAGE 1 Duration (min): 2 min : 0 sec Speed (mph): 1.7 Grade (%): 10 HR (bpm): 119 SBP (mmHg): 124 DBP (mmHg): 84 METS: --- Stage: STAGE 1 Duration (min): 3 min : 0 sec Speed (mph): 1.7 Grade (%): 10 HR (bpm): 118 SBP (mmHg): 150 DBP (mmHg): 77 METS: --- Stage: STAGE 2 Duration (min): 1 min : 0 sec Speed (mph): 2.5 Grade (%): 12 HR (bpm): 129 SBP (mmHg): 150 DBP (mmHg): 77 METS: --- Stage: STAGE 2 Duration (min): 2 min : 0 sec Speed (mph): 2.5 Grade (%): 12 HR (bpm): 141 SBP (mmHg): 145 DBP (mmHg): 76 METS: --- Stage: STAGE 2 Duration (min): 3 min : 0 sec Speed (mph): 2.5 Grade (%): 12 HR (bpm): 149 SBP (mmHg): 145 DBP (mmHg): 76 METS: --- Stage: STAGE 3 Duration (min): 1 min : 0 sec Speed (mph): 3.4 Grade (%): 14 HR (bpm): 162 SBP (mmHg): 140 DBP (mmHg): 61 METS: --- Stage: STAGE 3 Duration (min): 1 min : 0 sec Speed (mph): 3.4 Grade (%): 14 HR (bpm): 162 SBP (mmHg): 140 DBP (mmHg): 61 METS: --- Stage: RECOVERY Duration (min): 0 min : 59 sec Speed (mph): 0.0 Grade (%): 0 HR (bpm): 135 SBP (mmHg): 140 DBP (mmHg): 61 METS: --- Stage: RECOVERY Duration (min): 1 min : 59 sec Speed (mph): 0.0 Grade (%): 0 HR (bpm): 106 SBP (mmHg): 140 DBP (mmHg): 61 METS: --- Stage: RECOVERY Duration (min): 2 min : 59 sec Speed (mph): 0.0 Grade (%): 0 HR (bpm): 106 SBP (mmHg): 164 DBP (mmHg): 90 METS: --- Stage: RECOVERY Duration (min): 3 min : 14 sec Speed (mph): 0.0 Grade (%): 0 HR (bpm): 107 SBP (mmHg): 164 DBP (mmHg): 90 METS: --- Rest HR: 88 bpm Peak HR: 163 bpm Rest Sys BP: 124 mmHg Peak Sys BP: 164 mmHg Max Pred HR: 176 bpm % Max Pred HR: 93 % Target HR: 150 bpm Max RPP: 26,732 bpm*mmHg Mirza Score: 3 Termination Reason: Reached target heart rate or workload Cardiac Symptoms: Shortness of breath Max ST Seg Deviation: 0.80 mm Total Time: 7 min : 0 sec Rest Burris BP: 84 mmHg Peak Burris BP: 90 mmHg Angina Score: None Total METS: 8.9 Resting ECG Sinus rhythm. Stress ECG No ST changes. Arrhythmias None. Report Signatures
--- OUTSIDE RECORDS SUMMARY | 2024-11-10 09:10 | XMS_ITS | Patient Health Record ---
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 Name Role Phone Jewels MCKOY, Evan Primary Care Provider Teresa Arrington Unavailable [phone] Allergies Allergen (clinical drug ingredient) Drug/Non Drug Allergy documented on EMR Reaction Allergy Type Onset Date Status Cat dander cats (uncoded) Unknown Allergy Acti ve Results Component Value Reference Range Notes UDT Reviewed date:08/10/2024 01:27:49 PM Interpretation: Performing Lab: Notes/Report: THC NEG 0 - 50 ng/ml Cocaine NEG 0 - 300 ng/ml Amphetamine NEG 0 - 1000 ng/ml Buprenorphine (BUP) NEG 0 - 10 ng/ml Secobarbital (Bar) NEG 0 - 300 ng/ml Oxazepam (BZO) NEG 0 - 300 ng/ml 2-jxhpmczmoi-8,6-zhqbdpjs-0,3-diphenylpyrrolidine (WESLEY P) NEG 0 - 300 ng/ml Methamphetamine (MET) NEG 0 - 1000 ng/ml Methylenedioxymethamphetamine (MDMA) NEG 0 - 500 ng/ml Morphine (MOP 300/[id number]) NEG 0 - 300 ng/ml Methadone (MTD) NEG 0 - 300 ng/ml Phencyclidine (PCP) NEG 0 - 25 ng/ml Nortriptyline (TCA) NEG 0 - 1000 ng/ml Oxycodone NEG 0 - 300 ng/ml x NEG 0 - 300 ng/ml Reason For Referral No Information Medications Medication SIG (Take, Route, Frequency, Duration) Notes Start Date End Date Status Sertraline HCl 50 MG 1 tablet Orally Onc e a day for 90 days total 150 mg daily Active hydrOXYzine HCl 25 MG 1 tablet as needed Orally twice a day 08/10/2024 Active Venlafaxine HCl ER 75 MG TAKE 1 CAPSULE BY MOUTH EVERY DAY for 90 Active Sertraline HCl 100 MG 1 tablet Orally On ce a day for 90 days Active Brexpiprazole 1 MG 1 tablet Orally Once a day for 30 day(s) 09/07/2024 Active Carvedilol 25 MG 1 tablet with food Orally Twice a day Active Ozempic (2 MG/DOSE) 8 MG/3ML INJECT 2MG SUBCUTANEOUSLY WEEKLY Subcutaneous for 84 Days Active Ozempic (1 MG/DOSE) 4 MG/3ML as directed Subcutaneous Not-Taking Social History Tobacco Use: Social History Observation Description Date Details (start date - stop date) Never Smoker NA - NA Sex Assigned At : Social History Observation Description Sex Assigned At Female Household Question Answer Notes Marital status: Number of adults in household: 2 Number of children in household: 0 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 Yes with Men only Tobacco Control (Standard) Question Answer Notes Tobacco use: Nonsmoker Additional Findings: Tobacco non-user Current no nsmoker AUDIT-C (Standard) Question Answer Notes Did you have a drink contain ing alcohol in the past year? Yes How often did you have a dri nk containing alcohol in the past year? Monthly or less (1 point) How many drinks did you have on a typical day when you were drinking in the past year? 1 or 2 drinks (0 point) How often did you have six o r more drinks on one occasion in the past year? 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) Active confirmed Problem Depression Screening (397390720) Encounter for screening for depression (Z13.31) Active confirmed Problem [id number] KALA (generalized anxiety disorder) (F41.1) Active confirmed Problem 93968786 MDD (major depressive disorder), recurrent episode, moderate (F33.1) Active confirmed Problem [id number] MDD (major depressive disorder), recurrent episode, mild (F33.0) Active confirmed Vital Signs Heart Rate 100 /min 10/05/2024 Blood pressure diastolic 69 mm Hg 10/05/2024 Weight-kg 96.34 kg 10/05/2024 Blood pressure systolic 93 mm Hg 10/05/2024 Weight 212.4 lbs 10/05/2024 Encounters Encounter Location Date Provider Diagnosis [facility] [place] [address] [place] [address] [address] 08/10/2024 Teresa Therruslan MDD (major depressiv e disorder), recurrent episode, moderate F33.1 ; KALA (generalized anxiety disorder) F41.1 and 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 [employer] [address] [address] 10/05/2024 Teresa Therruslan Encounter for screen ing for cardiovascular disorders Z13.6 ; MDD (major depressive disorder), recurrent episode, mild F33.0 ; Encounter for screening for depression Z13.31 ; KALA (generalized anxiety disorder) F41.1 and Other prison (current) drug therapy Z79.899 [facility] [employer] [address] [address] 10/26/2024 Teresa Thery Assessments Encounter Date Diagnosis (ICD Code) Assessment Notes Treatment Notes Treatment Clinical Notes Section Notes 09/07/2024 MDD (major depressive disorder), recurrent episode, moderate (ICD-10 - F33.1) Preventing Depression From Coming Back: Care Instructions material was published, Seasonal Affective Disorder: Care Instructions material was published, Learning About Depression Screening material was published, Learning About Depression material was published, Preventing Depression From Coming Back: Care Instructions material was published, Seasonal Affective Disorder: Care Instructions material was published, Depression Treatment: Care Instructions material was published 1. depression- currently having depression and anxiety Spravato and TMS discussed - pamplets given discuss and educated on both treatments - will consider discuss and educated on Abilify (hx on rx) and Rexulti for depression will add Rexulti 0.5 mg daily for 1 week then increase 1 mg daily - samples and copay card given and 1 mg sent to pharmacy Sertraline 150 mg daily - only need refill onSertraline 50 mg today PCP filled rx Sertraline 100 mg and EFFEXOR 75 MG - 90 days recently Effexor ER 75 MG DAILY, no refill needed 2.Anxiety Vistaril 25 mg twice a day as needed no refill needed refer to therapy - Jes or Darline http_s://www.dontae .org/About-Mental -Illness/Mental-H ealth-Conditions http_s://psychSpringrn [place].com/depressi on/the-cognitive- xfqwdmiz-th-uypai ssion#treatments http__s://www.[facility].nih.gov/health/ topics/mental-[facility]-medications http__s://www.nam i.org/About-Menta l-Illness/Treatme nts/Mental-Health -Medications educated on all medications, benefits, side effects and risk, and educated on depression, anxiety, and ADHD, mood d/o and educated on compliance of medications, metabolic and movement d/o education appointment's, continue therapy discussion with patient about course of treatment and patient instructions. education on serotonin syndrome Discussed and educated pt regarding benzodiazepines are generally not intended for prolonged use and that use can cause tolerance, dependence, depression, and associated memory issues including dementias (this list is not exhaustive). Benzodiazepine use is generally not recommended concurrently with pain medications and/or other controlled substances educated on all medications, benefits, side effects and risk, and educated on depression, anxiety, and ADHD, mood d/o and educated on compliance of medications, metabolic and movement d/o education appointment is, continue therapy discussion with patient about course of treatment and patient instructions. education on serotonin syndrome SSRI/SNRI side effects discussed including but not limited to, gastric upset, nausea, vomiting, diarrhea and/or constipation, weight changes, sexual side effects including loss of libido, increased suicidal thoughts/behavior s in children and young adults, and serotonin syndrome. Second generation antipsychotics (SGAs) have metabolic syndrome issues with weight gain, increase in prolactin, increased waist circumference, increased lipids, and increased glucose. Thus routine monitoring of weight, metabolic labs, etc. is indicated. A general rank ordering of antipsychotics that have the greatest to the least risk of metabolic effects is olanzapine, quetiapine, risperidone, ziprasidone, and aripiprazole. However, weight gain can occur with all of these drugs and considerable variability exists among patients receiving the same drug regarding the risk of metabolic effects. Anti-psychotic agents not only increase the risk of metabolic disorder, they also increase the risk of CVA, akathisia, and movement disorders including EPS or tardive dyskinesia (more common with first generation antipsychotics) and more. Medication Management and Follow-Up - Plan: - Schedule follow-up appointments every 1-3 months to monitor the patient's response to the medication regimen. - Reinforce the importance of avoiding recreational drug use due to potential neurotoxicity and interactions with prescribed medications. 10/05/2024 Encounter for screening for cardiovascular disorders (ICD-10 - Z13.6) 1. depression- currently having depression and anxiety Spravato and TMS discussed - pamplets given discuss and educated on both treatments - will consider discuss and educated on all rx no refills on rx needed today Rexulti 1 mg daily - improved mood, depression Sertraline 150 mg daily - Effexor ER 75 MG DAILY, 2.Anxiety Vistaril 25 mg twice a day as needed no refill needed refer to therapy - Jes or Darline http_s://www.dontae .org/About-Mental -Illness/Mental-H ealth-Conditions http_s://psychNaldo/depressi on/the-cognitive- leacmvia-cp-fqpjs ssion#treatments http__s://www.nim h.nih.gov/health/ topics/mental-hea lth-medications http__s://www.nam i.org/About-Menta l-Illness/Treatme nts/Mental-Health -Medications educated on all medications, benefits, side effects and risk, and educated on depression, anxiety, and ADHD, mood d/o and educated on compliance of medications, metabolic and movement d/o education appointment's, continue therapy discussion with patient about course of treatment and patient instructions. education on serotonin syndrome Discussed and educated pt regarding benzodiazepines are generally not intended for prolonged use and that use can cause tolerance, dependence, depression, and associated memory issues including dementias (this list is not exhaustive). Benzodiazepine use is generally not recommended concurrently with pain medications and/or other controlled substances educated on all medications, benefits, side effects and risk, and educated on depression, anxiety, and ADHD, mood d/o and educated on compliance of medications, metabolic and movement d/o education appointment is, continue therapy discussion with patient about course of treatment and patient instructions. education on serotonin syndrome SSRI/SNRI side effects discussed including but not limited to, gastric upset, nausea, vomiting, diarrhea and/or constipation, weight changes, sexual side effects including loss of libido, increased suicidal thoughts/behavior s in children and young adults, and serotonin syndrome. Second generation antipsychotics (SGAs) have metabolic syndrome issues with weight gain, increase in prolactin, increased waist circumference, increased lipids, and increased glucose. Thus routine monitoring of weight, metabolic labs, etc. is indicated. A general rank ordering of antipsychotics that have the greatest to the least risk of metabolic effects is olanzapine, quetiapine, risperidone, ziprasidone, and aripiprazole. However, weight gain can occur with all of these drugs and considerable variability exists among patients receiving the same drug regarding the risk of metabolic effects. Anti-psychotic agents not only increase the risk of metabolic disorder, they also increase the risk of CVA, akathisia, and movement disorders including EPS or tardive dyskinesia (more common with first generation antipsychotics) and more. Medication Management and Follow-Up - Plan: - Schedule follow-up appointments every 1-3 months to monitor the patient's response to the medication regimen. - Reinforce the importance of avoiding recreational drug use due to potential neurotoxicity and interactions with prescribed medications. 10/05/2024 MDD (major depressive disorder), recurrent episode, mild (ICD-10 - F33.0) 1. depression- currently having depression and anxiety Spravato and TMS discussed - pamplets given discuss and educated on both treatments - will consider discuss and educated on all rx no refills on rx needed today Rexulti 1 mg daily - improved mood, depression Sertraline 150 mg daily - Effexor ER 75 MG DAILY, 2.Anxiety Vistaril 25 mg twice a day as needed no refill needed refer to therapy - Jes or Darline http_s://www.dontae .org/About-Mental -Illness/Mental-H ealth-Conditions http_s://psychcen tral.com/depressi on/the-cognitive- vxlytvad-du-qwhqu ssion#treatments http__s://www.[facility].nih.gov/health/ topics/mental-[facility]-medications http__s://www.nam i.org/About-Menta l-Illness/Treatme nts/Mental-Health -Medications educated on all medications, benefits, side effects and risk, and educated on depression, anxiety, and ADHD, mood d/o and educated on compliance of medications, metabolic and movement d/o education appointment's, continue therapy discussion with patient about course of treatment and patient instructions. education on serotonin syndrome Discussed and educated pt regarding benzodiazepines are generally not intended for prolonged use and that use can cause tolerance, dependence, depression, and associated memory issues including dementias (this list is not exhaustive). Benzodiazepine use is generally not recommended concurrently with pain medications and/or other controlled substances educated on all medications, benefits, side effects and risk, and educated on depression, anxiety, and ADHD, mood d/o and educated on compliance of medications, metabolic and movement d/o education appointment is, continue therapy discussion with patient about course of treatment and patient instructions. education on serotonin syndrome SSRI/SNRI side effects discussed including but not limited to, gastric upset, nausea, vomiting, diarrhea and/or constipation, weight changes, sexual side effects including loss of libido, increased suicidal thoughts/behavior s in children and young adults, and serotonin syndrome. Second generation antipsychotics (SGAs) have metabolic syndrome issues with weight gain, increase in prolactin, increased waist circumference, increased lipids, and increased glucose. Thus routine monitoring of weight, metabolic labs, etc. is indicated. A general rank ordering of antipsychotics that have the greatest to the least risk of metabolic effects is olanzapine, quetiapine, risperidone, ziprasidone, and aripiprazole. However, weight gain can occur with all of these drugs and considerable variability exists among patients receiving the same drug regarding the risk of metabolic effects. Anti-psychotic agents not only increase the risk of metabolic disorder, they also increase the risk of CVA, akathisia, and movement disorders including EPS or tardive dyskinesia (more common with first generation antipsychotics) and more. Medication Management and Follow-Up - Plan: - Schedule follow-up appointments every 1-3 months to monitor the patient's response to the medication regimen. - Reinforce the importance of avoiding recreational drug use due to potential neurotoxicity and interactions with prescribed medications. 08/10/2024 KALA (generalized anxiety disorder) (ICD-10 - F41.1) Learning About Generalized Anxiety Disorder material was published, Generalized Anxiety Disorder: Care Instructions material was published, Learning About Anxiety Disorders material was published, Learning About Transcranial Magnetic Stimulation (TMS) material was published presently taking Sertraline 100 mg daily, Effexor ER 75 MG DAILY, Vistaril 25 mg twice a day 1. depression- currently having depression and anxiety Increase Sertraline 150 mg daily - only need refill onSertraline 50 mg today PCP filled rx Sertraline 100 mg and EFFEXOR 75 MG - 90 days recently Effexor ER 75 MG DAILY, no refill needed 2.Anxiety Vistaril 25 mg twice a day as needed refer to therapy - Jes or Darline http_s://www.dontae .org/About-Mental -Illness/Mental-H ealth-Conditions http_s://psychTHE NOCKLIST[employer] [place]/depressi on/the-cognitive- nrjtyixh-oh-pppry ssion#treatments http__s://www.nim .nih.gov/health/ topics/mental-hea lth-medications http__s://www.nam i.org/About-Menta l-Illness/Treatme nts/Mental-Health -Medications educated on all medications, benefits, side effects and risk, and educated on depression, anxiety, and ADHD, mood d/o and educated on compliance of medications, metabolic and movement d/o education appointment's, continue therapy discussion with patient about course of treatment and patient instructions. education on serotonin syndrome Discussed and educated pt regarding benzodiazepines are generally not intended for prolonged use and that use can cause tolerance, dependence, depression, and associated memory issues including dementias (this list is not exhaustive). Benzodiazepine use is generally not recommended concurrently with pain medications and/or other controlled substances educated on all medications, benefits, side effects and risk, and educated on depression, anxiety, and ADHD, mood d/o and educated on compliance of medications, metabolic and movement d/o education appointment is, continue therapy discussion with patient about course of treatment and patient instructions. education on serotonin syndrome SSRI/SNRI side effects discussed including but not limited to, gastric upset, nausea, vomiting, diarrhea and/or constipation, weight changes, sexual side effects including loss of libido, increased suicidal thoughts/behavior s in children and young adults, and serotonin syndrome. Second generation antipsychotics (SGAs) have metabolic syndrome issues with weight gain, increase in prolactin, increased waist circumference, increased lipids, and increased glucose. Thus routine monitoring of weight, metabolic labs, etc. is indicated. A general rank ordering of antipsychotics that have the greatest to the least risk of metabolic effects is olanzapine, quetiapine, risperidone, ziprasidone, and aripiprazole. However, weight gain can occur with all of these drugs and considerable variability exists among patients receiving the same drug regarding the risk of metabolic effects. Anti-psychotic agents not only increase the risk of metabolic disorder, they also increase the risk of CVA, akathisia, and movement disorders including EPS or tardive dyskinesia (more common with first generation antipsychotics) and more. Medication Management and Follow-Up - Plan: - Schedule follow-up appointments every 1-3 months to monitor the patient's response to the medication regimen. - Reinforce the importance of avoiding recreational drug use due to potential neurotoxicity and interactions with prescribed medications. 08/10/2024 MDD (major depressive disorder), recurrent episode, moderate (ICD-10 - F33.1) Preventing Depression From Coming Back: Care Instructions material was published, Seasonal Affective Disorder: Care Instructions material was published, Learning About Depression Screening material was published, Learning About Depression material was published presently taking Sertraline 100 mg daily, Effexor ER 75 MG DAILY, Vistaril 25 mg twice a day 1. depression- currently having depression and anxiety Increase Sertraline 150 mg daily - only need refill onSertraline 50 mg today PCP filled rx Sertraline 100 mg and EFFEXOR 75 MG - 90 days recently Effexor ER 75 MG DAILY, no refill needed 2.Anxiety Vistaril 25 mg twice a day as needed refer to therapy - Jes or Darline http_s://www.dontae .org/About-Mental -Illness/Mental-H ealth-Conditions http_s://psychcen tral.com/depressi on/the-cognitive- ikwiwunm-xf-gmozn ssion#treatments http__s://www.nim h.nih.gov/health/ topics/mental-hea lth-medications http__s://www.nam i.org/About-Menta l-Illness/Treatme nts/Mental-Health -Medications educated on all medications, benefits, side effects and risk, and educated on depression, anxiety, and ADHD, mood d/o and educated on compliance of medications, metabolic and movement d/o education appointment's, continue therapy discussion with patient about course of treatment and patient instructions. education on serotonin syndrome Discussed and educated pt regarding benzodiazepines are generally not intended for prolonged use and that use can cause tolerance, dependence, depression, and associated memory issues including dementias (this list is not exhaustive). Benzodiazepine use is generally not recommended concurrently with pain medications and/or other controlled substances educated on all medications, benefits, side effects and risk, and educated on depression, anxiety, and ADHD, mood d/o and educated on compliance of medications, metabolic and movement d/o education appointment is, continue therapy discussion with patient about course of treatment and patient instructions. education on serotonin syndrome SSRI/SNRI side effects discussed including but not limited to, gastric upset, nausea, vomiting, diarrhea and/or constipation, weight changes, sexual side effects including loss of libido, increased suicidal thoughts/behavior s in children and young adults, and serotonin syndrome. Second generation antipsychotics (SGAs) have metabolic syndrome issues with weight gain, increase in prolactin, increased waist circumference, increased lipids, and increased glucose. Thus routine monitoring of weight, metabolic labs, etc. is indicated. A general rank ordering of antipsychotics that have the greatest to the least risk of metabolic effects is olanzapine, quetiapine, risperidone, ziprasidone, and aripiprazole. However, weight gain can occur with all of these drugs and considerable variability exists among patients receiving the same drug regarding the risk of metabolic effects. Anti-psychotic agents not only increase the risk of metabolic disorder, they also increase the risk of CVA, akathisia, and movement disorders including EPS or tardive dyskinesia (more common with first generation antipsychotics) and more. Medication Management and Follow-Up - Plan: - Schedule follow-up appointments every 1-3 months to monitor the patient's response to the medication regimen. - Reinforce the importance of avoiding recreational drug use due to potential neurotoxicity and interactions with prescribed medications. 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 depression- currently having depression and anxiety Increase Sertraline 150 mg daily - only need refill onSertraline 50 mg today PCP filled rx Sertraline 100 mg and EFFEXOR 75 MG - 90 days recently Effexor ER 75 MG DAILY, no refill needed 2.Anxiety Vistaril 25 mg twice a day as needed refer to therapy - Jes or Darline http_s://www.dontae .org/About-Mental -Illness/Mental-H ealth-Conditions http_s://psychNaldo/depressi on/the-cognitive- ztajbkzh-ry-vhcvc ssion#treatments http__s://www.[facility].nih.gov/health/ topics/mental-hea lth-medications http__s://www.nam i.org/About-Menta l-Illness/Treatme nts/Mental-Health -Medications educated on all medications, benefits, side effects and risk, and educated on depression, anxiety, and ADHD, mood d/o and educated on compliance of medications, metabolic and movement d/o education appointment's, continue therapy discussion with patient about course of treatment and patient instructions. education on serotonin syndrome Discussed and educated pt regarding benzodiazepines are generally not intended for prolonged use and that use can cause tolerance, dependence, depression, and associated memory issues including dementias (this list is not exhaustive). Benzodiazepine use is generally not recommended concurrently with pain medications and/or other controlled substances educated on all medications, benefits, side effects and risk, and educated on depression, anxiety, and ADHD, mood d/o and educated on compliance of medications, metabolic and movement d/o education appointment is, continue therapy discussion with patient about course of treatment and patient instructions. education on serotonin syndrome SSRI/SNRI side effects discussed including but not limited to, gastric upset, nausea, vomiting, diarrhea and/or constipation, weight changes, sexual side effects including loss of libido, increased suicidal thoughts/behavior s in children and young adults, and serotonin syndrome. Second generation antipsychotics (SGAs) have metabolic syndrome issues with weight gain, increase in prolactin, increased waist circumference, increased lipids, and increased glucose. Thus routine monitoring of weight, metabolic labs, etc. is indicated. A general rank ordering of antipsychotics that have the greatest to the least risk of metabolic effects is olanzapine, quetiapine, risperidone, ziprasidone, and aripiprazole. However, weight gain can occur with all of these drugs and considerable variability exists among patients receiving the same drug regarding the risk of metabolic effects. Anti-psychotic agents not only increase the risk of metabolic disorder, they also increase the risk of CVA, akathisia, and movement disorders including EPS or tardive dyskinesia (more common with first generation antipsychotics) and more. Medication Management and Follow-Up - Plan: - Schedule follow-up appointments every 1-3 months to monitor the patient's response to the medication regimen. - Reinforce the importance of avoiding recreational drug use due to potential neurotoxicity and interactions with prescribed medications. 10/05/2024 Encounter for screening for depression (ICD-10 - Z13.31) 1. depression- currently having depression and anxiety Spravato and TMS discussed - pamplets given discuss and educated on both treatments - will consider discuss and educated on all rx no refills on rx needed today Rexulti 1 mg daily - improved mood, depression Sertraline 150 mg daily - Effexor ER 75 MG DAILY, 2.Anxiety Vistaril 25 mg twice a day as needed no refill needed refer to therapy - Jes or Darline http_s://www.dontae .org/About-Mental -Illness/Mental-H ealth-Conditions http_s://psychcen [employer].com/depressi on/the-cognitive- sfflkwfo-lk-hqvng ssion#treatments http__s://www.nim h.nih.gov/health/ topics/mental-hea lth-medications http__s://www.nam i.org/About-Menta l-Illness/Treatme nts/Mental-Health -Medications educated on all medications, benefits, side effects and risk, and educated on depression, anxiety, and ADHD, mood d/o and educated on compliance of medications, metabolic and movement d/o education appointment's, continue therapy discussion with patient about course of treatment and patient instructions. education on serotonin syndrome Discussed and educated pt regarding benzodiazepines are generally not intended for prolonged use and that use can cause tolerance, dependence, depression, and associated memory issues including dementias (this list is not exhaustive). Benzodiazepine use is generally not recommended concurrently with pain medications and/or other controlled substances educated on all medications, benefits, side effects and risk, and educated on depression, anxiety, and ADHD, mood d/o and educated on compliance of medications, metabolic and movement d/o education appointment is, continue therapy discussion with patient about course of treatment and patient instructions. education on serotonin syndrome SSRI/SNRI side effects discussed including but not limited to, gastric upset, nausea, vomiting, diarrhea and/or constipation, weight changes, sexual side effects including loss of libido, increased suicidal thoughts/behavior s in children and young adults, and serotonin syndrome. Second generation antipsychotics (SGAs) have metabolic syndrome issues with weight gain, increase in prolactin, increased waist circumference, increased lipids, and increased glucose. Thus routine monitoring of weight, metabolic labs, etc. is indicated. A general rank ordering of antipsychotics that have the greatest to the least risk of metabolic effects is olanzapine, quetiapine, risperidone, ziprasidone, and aripiprazole. However, weight gain can occur with all of these drugs and considerable variability exists among patients receiving the same drug regarding the risk of metabolic effects. Anti-psychotic agents not only increase the risk of metabolic disorder, they also increase the risk of CVA, akathisia, and movement disorders including EPS or tardive dyskinesia (more common with first generation antipsychotics) and more. Medication Management and Follow-Up - Plan: - Schedule follow-up appointments every 1-3 months to monitor the patient's response to the medication regimen. - Reinforce the importance of avoiding recreational drug use due to potential neurotoxicity and interactions with prescribed medications. 09/07/2024 KALA (generalized anxiety disorder) (ICD-10 - F41.1) Learning About Generalized Anxiety Disorder material was published, Generalized Anxiety Disorder: Care Instructions material was published, Learning About Anxiety Disorders material was published, Learning About Transcranial Magnetic Stimulation (TMS) material was published, Learning About Generalized Anxiety Disorder material was published, Generalized Anxiety Disorder: Care Instructions material was published, Learning About Anxiety Disorders material was published 1. depression- currently having depression and anxiety Spravato and TMS discussed - pamplets given discuss and educated on both treatments - will consider discuss and educated on Abilify (hx on rx) and Rexulti for depression will add Rexulti 0.5 mg daily for 1 week then increase 1 mg daily - samples and copay card given and 1 mg sent to pharmacy Sertraline 150 mg daily - only need refill onSertraline 50 mg today PCP filled rx Sertraline 100 mg and EFFEXOR 75 MG - 90 days recently Effexor ER 75 MG DAILY, no refill needed 2.Anxiety Vistaril 25 mg twice a day as needed no refill needed refer to therapy - Jes or Darline http_s://www.dontae .org/About-Mental -Illness/Mental-H ealth-Conditions http_s://psychcen [place].com/depressi on/the-cognitive- zeusseiz-wq-jlrrb ssion#treatments http__s://www.nim .nih.gov/health/ topics/mental-hea lth-medications http__s://www.nam i.org/About-Menta l-Illness/Treatme nts/Mental-Health -Medications educated on all medications, benefits, side effects and risk, and educated on depression, anxiety, and ADHD, mood d/o and educated on compliance of medications, metabolic and movement d/o education appointment's, continue therapy discussion with patient about course of treatment and patient instructions. education on serotonin syndrome Discussed and educated pt regarding benzodiazepines are generally not intended for prolonged use and that use can cause tolerance, dependence, depression, and associated memory issues including dementias (this list is not exhaustive). Benzodiazepine use is generally not recommended concurrently with pain medications and/or other controlled substances educated on all medications, benefits, side effects and risk, and educated on depression, anxiety, and ADHD, mood d/o and educated on compliance of medications, metabolic and movement d/o education appointment is, continue therapy discussion with patient about course of treatment and patient instructions. education on serotonin syndrome SSRI/SNRI side effects discussed including but not limited to, gastric upset, nausea, vomiting, diarrhea and/or constipation, weight changes, sexual side effects including loss of libido, increased suicidal thoughts/behavior s in children and young adults, and serotonin syndrome. Second generation antipsychotics (SGAs) have metabolic syndrome issues with weight gain, increase in prolactin, increased waist circumference, increased lipids, and increased glucose. Thus routine monitoring of weight, metabolic labs, etc. is indicated. A general rank ordering of antipsychotics that have the greatest to the least risk of metabolic effects is olanzapine, quetiapine, risperidone, ziprasidone, and aripiprazole. However, weight gain can occur with all of these drugs and considerable variability exists among patients receiving the same drug regarding the risk of metabolic effects. Anti-psychotic agents not only increase the risk of metabolic disorder, they also increase the risk of CVA, akathisia, and movement disorders including EPS or tardive dyskinesia (more common with first generation antipsychotics) and more. Medication Management and Follow-Up - Plan: - Schedule follow-up appointments every 1-3 months to monitor the patient's response to the medication regimen. - Reinforce the importance of avoiding recreational drug use due to potential neurotoxicity and interactions with prescribed medications. 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 depression- currently having depression and anxiety Spravato and TMS discussed - pamplets given discuss and educated on both treatments - will consider discuss and educated on Abilify (hx on rx) and Rexulti for depression will add Rexulti 0.5 mg daily for 1 week then increase 1 mg daily - samples and copay card given and 1 mg sent to pharmacy Sertraline 150 mg daily - only need refill onSertraline 50 mg today PCP filled rx Sertraline 100 mg and EFFEXOR 75 MG - 90 days recently Effexor ER 75 MG DAILY, no refill needed 2.Anxiety Vistaril 25 mg twice a day as needed no refill needed refer to therapy - Jes or Darline http_s://www.dontae .org/About-Mental -Illness/Mental-H ealth-Conditions http_s://psychcen tral.com/depressi on/the-cognitive- icvoadcq-gd-jvnev ssion#treatments http__s://www.nim h.nih.gov/health/ topics/mental-hea lth-medications http__s://www.nam i.org/About-Menta l-Illness/Treatme nts/Mental-Health -Medications educated on all medications, benefits, side effects and risk, and educated on depression, anxiety, and ADHD, mood d/o and educated on compliance of medications, metabolic and movement d/o education appointment's, continue therapy discussion with patient about course of treatment and patient instructions. education on serotonin syndrome Discussed and educated pt regarding benzodiazepines are generally not intended for prolonged use and that use can cause tolerance, dependence, depression, and associated memory issues including dementias (this list is not exhaustive). Benzodiazepine use is generally not recommended concurrently with pain medications and/or other controlled substances educated on all medications, benefits, side effects and risk, and educated on depression, anxiety, and ADHD, mood d/o and educated on compliance of medications, metabolic and movement d/o education appointment is, continue therapy discussion with patient about course of treatment and patient instructions. education on serotonin syndrome SSRI/SNRI side effects discussed including but not limited to, gastric upset, nausea, vomiting, diarrhea and/or constipation, weight changes, sexual side effects including loss of libido, increased suicidal thoughts/behavior s in children and young adults, and serotonin syndrome. Second generation antipsychotics (SGAs) have metabolic syndrome issues with weight gain, increase in prolactin, increased waist circumference, increased lipids, and increased glucose. Thus routine monitoring of weight, metabolic labs, etc. is indicated. A general rank ordering of antipsychotics that have the greatest to the least risk of metabolic effects is olanzapine, quetiapine, risperidone, ziprasidone, and aripiprazole. However, weight gain can occur with all of these drugs and considerable variability exists among patients receiving the same drug regarding the risk of metabolic effects. Anti-psychotic agents not only increase the risk of metabolic disorder, they also increase the risk of CVA, akathisia, and movement disorders including EPS or tardive dyskinesia (more common with first generation antipsychotics) and more. Medication Management and Follow-Up - Plan: - Schedule follow-up appointments every 1-3 months to monitor the patient's response to the medication regimen. - Reinforce the importance of avoiding recreational drug use due to potential neurotoxicity and interactions with prescribed medications. 10/05/2024 KALA (generalized anxiety disorder) (ICD-10 - F41.1) Learning About Generalized Anxiety Disorder material was published, Generalized Anxiety Disorder: Care Instructions material was published, Learning About Anxiety Disorders material was published, Learning About Transcranial Magnetic Stimulation (TMS) material was published, Learning About Generalized Anxiety Disorder material was published, Generalized Anxiety Disorder: Care Instructions material was published, Learning About Anxiety Disorders material was published 1. depression- currently having depression and anxiety Spravato and TMS discussed - pamplets given discuss and educated on both treatments - will consider discuss and educated on all rx no refills on rx needed today Rexulti 1 mg daily - improved mood, depression Sertraline 150 mg daily - Effexor ER 75 MG DAILY, 2.Anxiety Vistaril 25 mg twice a day as needed no refill needed refer to therapy - Jes or Darline http_s://www.dontae .org/About-Mental -Illness/Mental-H ealth-Conditions http_s://psychcen [employer].com/depressi on/the-cognitive- uhrimlof-bo-zfkwc ssion#treatments http__s://www.[facility].nih.gov/health/ topics/mental-hea lth-medications http__s://www.nam i.org/About-Menta l-Illness/Treatme nts/Mental-Health -Medications educated on all medications, benefits, side effects and risk, and educated on depression, anxiety, and ADHD, mood d/o and educated on compliance of medications, metabolic and movement d/o education appointment's, continue therapy discussion with patient about course of treatment and patient instructions. education on serotonin syndrome Discussed and educated pt regarding benzodiazepines are generally not intended for prolonged use and that use can cause tolerance, dependence, depression, and associated memory issues including dementias (this list is not exhaustive). Benzodiazepine use is generally not recommended concurrently with pain medications and/or other controlled substances educated on all medications, benefits, side effects and risk, and educated on depression, anxiety, and ADHD, mood d/o and educated on compliance of medications, metabolic and movement d/o education appointment is, continue therapy discussion with patient about course of treatment and patient instructions. education on serotonin syndrome SSRI/SNRI side effects discussed including but not limited to, gastric upset, nausea, vomiting, diarrhea and/or constipation, weight changes, sexual side effects including loss of libido, increased suicidal thoughts/behavior s in children and young adults, and serotonin syndrome. Second generation antipsychotics (SGAs) have metabolic syndrome issues with weight gain, increase in prolactin, increased waist circumference, increased lipids, and increased glucose. Thus routine monitoring of weight, metabolic labs, etc. is indicated. A general rank ordering of antipsychotics that have the greatest to the least risk of metabolic effects is olanzapine, quetiapine, risperidone, ziprasidone, and aripiprazole. However, weight gain can occur with all of these drugs and considerable variability exists among patients receiving the same drug regarding the risk of metabolic effects. Anti-psychotic agents not only increase the risk of metabolic disorder, they also increase the risk of CVA, akathisia, and movement disorders including EPS or tardive dyskinesia (more common with first generation antipsychotics) and more. Medication Management and Follow-Up - Plan: - Schedule follow-up appointments every 1-3 months to monitor the patient's response to the medication regimen. - Reinforce the importance of avoiding recreational drug use due to potential neurotoxicity and interactions with prescribed medications. 10/05/2024 Other [facility] (current) drug therapy (ICD-10 - Z79.899) Medication Refill: Care Instructions material was published, Medication Refill: Care Instructions material was published 1. depression- currently having depression and anxiety Spravato and TMS discussed - pamplets given discuss and educated on both treatments - will consider discuss and educated on all rx no refills on rx needed today Rexulti 1 mg daily - improved mood, depression Sertraline 150 mg daily - Effexor ER 75 MG DAILY, 2.Anxiety Vistaril 25 mg twice a day as needed no refill needed refer to therapy - Jes or Darline http_s://www.dontae .org/About-Mental -Illness/Mental-H ealth-Conditions http_s://psychSpringrn [place].com/depressi on/the-cognitive- omhbihxr-fg-wnjbb ssion#treatments http__s://www.nim .nih.gov/health/ topics/mental-hea lth-medications http__s://www.nam i.org/About-Menta l-Illness/Treatme nts/Mental-Health -Medications educated on all medications, benefits, side effects and risk, and educated on depression, anxiety, and ADHD, mood d/o and educated on compliance of medications, metabolic and movement d/o education appointment's, continue therapy discussion with patient about course of treatment and patient instructions. education on serotonin syndrome Discussed and educated pt regarding benzodiazepines are generally not intended for prolonged use and that use can cause tolerance, dependence, depression, and associated memory issues including dementias (this list is not exhaustive). Benzodiazepine use is generally not recommended concurrently with pain medications and/or other controlled substances educated on all medications, benefits, side effects and risk, and educated on depression, anxiety, and ADHD, mood d/o and educated on compliance of medications, metabolic and movement d/o education appointment is, continue therapy discussion with patient about course of treatment and patient instructions. education on serotonin syndrome SSRI/SNRI side effects discussed including but not limited to, gastric upset, nausea, vomiting, diarrhea and/or constipation, weight changes, sexual side effects including loss of libido, increased suicidal thoughts/behavior s in children and young adults, and serotonin syndrome. Second generation antipsychotics (SGAs) have metabolic syndrome issues with weight gain, increase in prolactin, increased waist circumference, increased lipids, and increased glucose. Thus routine monitoring of weight, metabolic labs, etc. is indicated. A general rank ordering of antipsychotics that have the greatest to the least risk of metabolic effects is olanzapine, quetiapine, risperidone, ziprasidone, and aripiprazole. However, weight gain can occur with all of these drugs and considerable variability exists among patients receiving the same drug regarding the risk of metabolic effects. Anti-psychotic agents not only increase the risk of metabolic disorder, they also increase the risk of CVA, akathisia, and movement disorders including EPS or tardive dyskinesia (more common with first generation antipsychotics) and more. Medication Management and Follow-Up - Plan: - Schedule follow-up appointments every 1-3 months to monitor the patient's response to the medication regimen. - Reinforce the importance of avoiding recreational drug use due to potential neurotoxicity and interactions with prescribed medications. 08/10/2024 Other Learning About Depression Screening material was printed, Sertraline Oral Tablet (SERTRALINE - ORAL) material was published presently taking Sertraline 100 mg daily, Effexor ER 75 MG DAILY, Vistaril 25 mg twice a day 1. depression- currently having depression and anxiety Increase Sertraline 150 mg daily - only need refill onSertraline 50 mg today PCP filled rx Sertraline 100 mg and EFFEXOR 75 MG - 90 days recently Effexor ER 75 MG DAILY, no refill needed 2.Anxiety Vistaril 25 mg twice a day as needed refer to therapy - Jes or Darline http_s://www.dontae .org/About-Mental -Illness/Mental-H ealth-Conditions http_s://psychcen tral.com/depressi on/the-cognitive- oxfirqtv-kk-zbzli ssion#treatments http__s://www.[facility].nih.gov/health/ topics/mental-[facility]-medications http__s://www.nam i.org/About-Menta l-Illness/Treatme nts/Mental-Health -Medications educated on all medications, benefits, side effects and risk, and educated on depression, anxiety, and ADHD, mood d/o and educated on compliance of medications, metabolic and movement d/o education appointment's, continue therapy discussion with patient about course of treatment and patient instructions. education on serotonin syndrome Discussed and educated pt regarding benzodiazepines are generally not intended for prolonged use and that use can cause tolerance, dependence, depression, and associated memory issues including dementias (this list is not exhaustive). Benzodiazepine use is generally not recommended concurrently with pain medications and/or other controlled substances educated on all medications, benefits, side effects and risk, and educated on depression, anxiety, and ADHD, mood d/o and educated on compliance of medications, metabolic and movement d/o education appointment is, continue therapy discussion with patient about course of treatment and patient instructions. education on serotonin syndrome SSRI/SNRI side effects discussed including but not limited to, gastric upset, nausea, vomiting, diarrhea and/or constipation, weight changes, sexual side effects including loss of libido, increased suicidal thoughts/behavior s in children and young adults, and serotonin syndrome. Second generation antipsychotics (SGAs) have metabolic syndrome issues with weight gain, increase in prolactin, increased waist circumference, increased lipids, and increased glucose. Thus routine monitoring of weight, metabolic labs, etc. is indicated. A general rank ordering of antipsychotics that have the greatest to the least risk of metabolic effects is olanzapine, quetiapine, risperidone, ziprasidone, and aripiprazole. However, weight gain can occur with all of these drugs and considerable variability exists among patients receiving the same drug regarding the risk of metabolic effects. Anti-psychotic agents not only increase the risk of metabolic disorder, they also increase the risk of CVA, akathisia, and movement disorders including EPS or tardive dyskinesia (more common with first generation antipsychotics) and more. Medication Management and Follow-Up - Plan: - Schedule follow-up appointments every 1-3 months to monitor the patient's response to the medication regimen. - Reinforce the importance of avoiding recreational drug use due to potential neurotoxicity and interactions with prescribed medications. 09/07/2024 Other Sertraline material was published, Brexpiprazole material was published 1. depression- currently having depression and anxiety Spravato and TMS discussed - pamplets given discuss and educated on both treatments - will consider discuss and educated on Abilify (hx on rx) and Rexulti for depression will add Rexulti 0.5 mg daily for 1 week then increase 1 mg daily - samples and copay card given and 1 mg sent to pharmacy Sertraline 150 mg daily - only need refill onSertraline 50 mg today PCP filled rx Sertraline 100 mg and EFFEXOR 75 MG - 90 days recently Effexor ER 75 MG DAILY, no refill needed 2.Anxiety Vistaril 25 mg twice a day as needed no refill needed refer to therapy - Jes Gregorio http_s://www.dontae .org/About-Mental -Illness/Mental-H ealth-Conditions http_s://psychcen GaN Systemsl.com/depressi on/the-cognitive- yzxqvdro-ga-lmeqv ssion#treatments http__s://www.nim .nih.gov/health/ topics/mental-hea lth-medications http__s://www.nam i.org/About-Menta l-Illness/Treatme nts/Mental-Health -Medications educated on all medications, benefits, side effects and risk, and educated on depression, anxiety, and ADHD, mood d/o and educated on compliance of medications, metabolic and movement d/o education appointment's, continue therapy discussion with patient about course of treatment and patient instructions. education on serotonin syndrome Discussed and educated pt regarding benzodiazepines are generally not intended for prolonged use and that use can cause tolerance, dependence, depression, and associated memory issues including dementias (this list is not exhaustive). Benzodiazepine use is generally not recommended concurrently with pain medications and/or other controlled substances educated on all medications, benefits, side effects and risk, and educated on depression, anxiety, and ADHD, mood d/o and educated on compliance of medications, metabolic and movement d/o education appointment is, continue therapy discussion with patient about course of treatment and patient instructions. education on serotonin syndrome SSRI/SNRI side effects discussed including but not limited to, gastric upset, nausea, vomiting, diarrhea and/or constipation, weight changes, sexual side effects including loss of libido, increased suicidal thoughts/behavior s in children and young adults, and serotonin syndrome. Second generation antipsychotics (SGAs) have metabolic syndrome issues with weight gain, increase in prolactin, increased waist circumference, increased lipids, and increased glucose. Thus routine monitoring of weight, metabolic labs, etc. is indicated. A general rank ordering of antipsychotics that have the greatest to the least risk of metabolic effects is olanzapine, quetiapine, risperidone, ziprasidone, and aripiprazole. However, weight gain can occur with all of these drugs and considerable variability exists among patients receiving the same drug regarding the risk of metabolic effects. Anti-psychotic agents not only increase the risk of metabolic disorder, they also increase the risk of CVA, akathisia, and movement disorders including EPS or tardive dyskinesia (more common with first generation antipsychotics) and more. Medication Management and Follow-Up - Plan: - Schedule follow-up appointments every 1-3 months to monitor the patient's response to the medication regimen. - Reinforce the importance of avoiding recreational drug use due to potential neurotoxicity and interactions with prescribed medications. 10/05/2024 Other Preventing Depression From Coming Back: Care Instructions material was published, Seasonal Affective Disorder: Care Instructions material was published, Learning About Depression Screening material was published, Learning About Depression material was published, Preventing Depression From Coming Back: Care Instructions material was published, Seasonal Affective Disorder: Care Instructions material was published, Depression Treatment: Care Instructions material was published 1. depression- currently having depression and anxiety Spravato and TMS discussed - pamplets given discuss and educated on both treatments - will consider discuss and educated on all rx no refills on rx needed today Rexulti 1 mg daily - improved mood, depression Sertraline 150 mg daily - Effexor ER 75 MG DAILY, 2.Anxiety Vistaril 25 mg twice a day as needed no refill needed refer to therapy - Jes or Darline http_s://www.dontae .org/About-Mental -Illness/Mental-H ealth-Conditions http_s://psychcen tral.com/depressi on/the-cognitive- bzgokqda-om-nnowr ssion#treatments http__s://www.nim h.nih.gov/health/ topics/mental-hea lt-medications http__s://www.nam i.org/About-Menta l-Illness/Treatme nts/Mental-Health -Medications educated on all medications, benefits, side effects and risk, and educated on depression, anxiety, and ADHD, mood d/o and educated on compliance of medications, metabolic and movement d/o education appointment's, continue therapy discussion with patient about course of treatment and patient instructions. education on serotonin syndrome Discussed and educated pt regarding benzodiazepines are generally not intended for prolonged use and that use can cause tolerance, dependence, depression, and associated memory issues including dementias (this list is not exhaustive). Benzodiazepine use is generally not recommended concurrently with pain medications and/or other controlled substances educated on all medications, benefits, side effects and risk, and educated on depression, anxiety, and ADHD, mood d/o and educated on compliance of medications, metabolic and movement d/o education appointment is, continue therapy discussion with patient about course of treatment and patient instructions. education on serotonin syndrome SSRI/SNRI side effects discussed including but not limited to, gastric upset, nausea, vomiting, diarrhea and/or constipation, weight changes, sexual side effects including loss of libido, increased suicidal thoughts/behavior s in children and young adults, and serotonin syndrome. Second generation antipsychotics (SGAs) have metabolic syndrome issues with weight gain, increase in prolactin, increased waist circumference, increased lipids, and increased glucose. Thus routine monitoring of weight, metabolic labs, etc. is indicated. A general rank ordering of antipsychotics that have the greatest to the least risk of metabolic effects is olanzapine, quetiapine, risperidone, ziprasidone, and aripiprazole. However, weight gain can occur with all of these drugs and considerable variability exists among patients receiving the same drug regarding the risk of metabolic effects. Anti-psychotic agents not only increase the risk of metabolic disorder, they also increase the risk of CVA, akathisia, and movement disorders including EPS or tardive dyskinesia (more common with first generation antipsychotics) and more. Medication Management and Follow-Up - Plan: - Schedule follow-up appointments every 1-3 months to monitor the patient's response to the medication regimen. - Reinforce the importance of avoiding recreational drug use due to potential neurotoxicity and interactions with prescribed medications. Plan Of Treatment Next Appt Details Provider Name:Teresa Lauren , 01/04/2025 08:45:00 AM, [address] [facility] [address], [facility] [address], [place], [address], Insurance Providers Payer Name Payer Address Payer Phone Subscriber Number Group Number Insured Name Patient Relationship to Insured Coverage Start Date Coverage End Date [employer] [address] [place] [address] [phone] [id number] Yvonne Marques Self - patient is the insured Medical (General) History Medical History History ICD Code Past Psychiatric History: Anxiety Disord er,Major Depressive Episode abdominal aortic aneurysm: No atrial fibrillation: No chronic fatigue syndrome: No essential tremor: No hyperlipidemia: No hypertension: No Parkinson's disease: No restless leg syndrome: No stroke: No subdural hematoma: No type 1 diabetes mellitus: No type 2 diabetes mellitus: Yes vitamin B12 deficiency: No vitamin D deficiency: Yes Surgical History Surgery Date(Month/Year) Gallbladder Appendix Carpal tunnel left wrist Hospitalization History Reason Date(Month/Year) Gallbladder surgery. Appendix surgery
--- OUTSIDE RECORDS SUMMARY | 2024-11-10 09:10 | XMS_ITS | Clinical Summary ---
Author Organization [facility] Address [address] [place] [address] Care Team Providers Care Paint Specialist Name Role Phone Evan Donis MD Primary Care Provider + [phone] Allergies No known active allergies Medications ondansetron ODT (ZOFRAN-ODT) 8 mg disintegrating tablet Take 1 tablet (8 mg total) by mouth every 8 (eight) hours as needed for nausea or vomiting 30 tablet 3 Active venlafaxine XR (EFFEXOR-XR) 150 mg 24 hr capsule Take 1 capsule (150 mg total) by mouth daily Active sertraline (ZOLOFT) 100 mg tablet Take 1 tablet (100 mg total) by mouth daily Active carvediloL (COREG) 25 mg tablet Take 1 tablet (25 mg total) by mouth 2 (two) times a day with meals Active semaglutide (Ozempic) 1 mg/dose (4 mg/3 mL) pen injector injection Inject 1 mg under the skin every 7 days Last taken on 01/13. Active docusate sodium (Colace) 100 mg capsuleIndications: constipation Take 1 capsule (100 mg total) by mouth 2 (two) times a day for 14 days 28 capsule 4 Active Active Problems Problem Noted Date Diagnosed Date Cholecystitis 01/20/2024 Assessment & Plan (01/29/2024 10:52 AM CDT): Diet as tolerated. Okay to return to work if has light duty. Continue bowel regimen to avoid straining. Patient will call us back with any further questions or concerns. Surgical History Surgery Date Site/Laterality Comments LAPAROSCOPIC CHOLECYSTECTOMY 01/20/2024 N/A Medical History Medical History Date Comments Tachycardia GERD (gastroesophageal reflux disease) Arrhythmia Social History Tobacco Use Types Packs/Day Years Used Date Smoking Tobacco: Never Smokeless Tobacco: Never Tobacco Cessation:Counseling Given: Not Answered AUDIT-C Answer Date Recorded Q1: How often do you have a drink containing alc ohol? Monthly or less 01/20/2024 Q2: How many drinks containi ng alcohol do you have on a typical day when you are drinking? 1 or 2 01/20/2024 Q3: How often do you have si x or more drinks on one occasion? Never 01/20/2024 PHQ-2 Answer Date Recorded PHQ-2 Total Score (If total score is 3 or more points, staff should administer the PHQ-9) 2 01/20/2024 Personal Safety Answer Date Recorded Have you ever been in or are you currently in a harmful physical or emotional relationship or is someone making you feel afraid or unsafe? 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 Gender Identity Not on file Sexual Orientation Not on file Obstetrics History Last Filed Vital Signs Vital Sign Reading Time Taken Comments Blood Pressure 118/78 01/29/2024 10:09 AM CDT Pulse 93 01/29/2024 10:09 AM CDT Temperature 36.3 C (97.3 F) 01/29/2024 10:09 AM CDT Respiratory Rate 16 01/20/2024 7:35 PM CDT Oxygen Saturation 97% 01/29/2024 10: 09 AM CDT Inhaled Oxygen Concentration - - Weight 97.4 kg (214 lb 11.2 oz) 024 10:09 AM CDT Height 162.6 cm (5' 4 ) 01/29/2024 10:0 9 AM CDT Body Mass Index 36.85 01/29/2024 10:09 AM CDT Plan of Treatment Health Maintenance Due Date Last Done Comments Breast Cancer Screening-Mammogram 1980 Cervical Cancer Screening 1980 Hepatitis C Screening 1980 DTaP/Tdap/Td Vaccine (1 - Tdap) 1991 Varicella Vaccines (1 of 2 - 13+ 2-dose series) 1993 Hepatitis B Screening 1998 Regular Well Visit/Exam 18-64 1998 Covid-19 Vaccine (2023-2 5 season) 2024 05/11/2022, 06/12/2021, 09/22/2020 Influenza Vaccine (#1) 2024 Depression Screening 01/19/2025 01/20/2024 HPV Vaccines Aged Out No longer eligi ble based on patient's age to complete this topic Pneumococcal vaccine <65 Aged Out No longer eligible based on patient's age to complete this topic Insurance [facility] [id number] Advance Directives For more information, please contact: [phone] * Full Code (Latest Code Status on File) Date Activated Date Inactivated Comments 01/20/2024 7:25 AM 01/20/2024 11:44 PM Care Teams Paint Specialist Relationship Specialty Start Date End Date Evan Donis MD PCP - General Family Medicine 08/10/22
--- OUTSIDE RECORDS SUMMARY | 2024-11-10 09:10 | XMS_ITS | Clinical Summary ---
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 Gender Identity Not on file Sexual Orientation Not on file Plan of Treatment Health Maintenance Due Date Last Done Comments Hepatitis C Virus (HCV) Screening 1980 TdaP Immunization 1980 Hepatitis B Immunization (1 of 3 - 19+ 3-dose series) 1999 Pap Smear 2001 Cervical Cancer Screening (CCS) 2010 HPV/Cotest 2010 Discussion re Starting/Frequency of Mammograms 2020 Influenza Immunization (#1) 2024 SARS-COV-2 Immunization (2023- season) 2024 06/12/2021, 09/22/2020 Respiratory Syncytial Virus (RSV) Immunization (Adult) (1 - 1-dose 75+ series) 2055 Meningococcal Immunization (ACWY) Aged Out No longer eligible b ased on patient's age to complete this topic Pneumococcal Immunization Combined Aged Out No longer eligible b ased on patient's age to complete this topic Rotavirus Immunization Aged Out No lo nger eligible based on patient's age to complete this topic
--- OUTSIDE RECORDS SUMMARY | 2024-11-10 09:10 | XMS_ITS | Referral Summary ---
Author Organization [facility] Address [address] [place] [address] Care Team Providers Care Reporting Manager Name Role Phone Evan Donis MD Primary Care Provider + [phone] Allergies No known active allergies Medications ondansetron [...] back with any further questions or concerns. 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
== END 2024-11-10 08:43 | disposition home or self-care (01) ==
LOC: ANHCARD 08:44
PROVIDERS: PCP Family Medicine; Visit Provider Nurse Practitioner Family
DX: I49.9 Cardiac arrhythmia, unspecified (principal); R00.0 Tachycardia, unspecified; R03.0 Elevated blood-pressure reading, without diagnosis of hypertension
CPT/HCPCS: 93017; 93306

== ENCOUNTER 2025-05-30 13:39 | Outpatient (CLI) | payer OTHER, SELFPAY ==
--- NOTE | ~2025-05-30 | MM_ITS ---
EXAMINATION: MM screening [facility] BI w ameya HISTORY: Screening TECHNIQUE: Craniocaudal and mediolateral oblique 3-D tomosynthesis images were obtained and synthetic 2-D images were generated. CAD analysis was submitted and interpreted. COMPARISON: Comparison to multiple prior studies sequentially, with oldest reviewed study dated 10/23/2020. BREAST PARENCHYMAL COMPOSITION: Not dense: There are scattered areas of fibroglandular density. FINDINGS: There is no evidence of suspicious mass, calcification, or architectural distortion to suggest malignancy in either breast. There has been no suspicious interval change. IMPRESSION: 1. No mammographic evidence of malignancy. 2. Recommend routine screening mammography in one year. BI-RADS Category 1: Negative Reviewed, dictated and finalized at location B. ICAL LABORATORY SCIENTIST
== END 2025-05-30 13:40 | disposition home or self-care (01) ==
PROVIDERS: PCP Family Medicine; Visit Provider Nurse Practitioner Family
DX: Z12.31 Encounter for screening mammogram for malignant neoplasm of breast (principal)
CPT/HCPCS: 77063; 77067

== ENCOUNTER 2025-07-04 08:02 | Outpatient (CLI) | payer OTHER, SELFPAY ==
--- NOTE | ~2025-07-04 | US_ITS ---
EXAM/PROCEDURE: US axilla LT HISTORY: M79.622 - Pain in left upper arm COMPARISON: None available. TECHNIQUE: Directed examination performed in the left axillary region by technologist with multiple static images V. FINDINGS: In the area of palpable concern, a 2.2 x 1.8 x 0.6 cm wider than tall somewhat irregular appearing hypoechoic mass is present with on image 71 appears to be an echogenic hilum. No other masses. No abnormal fluid collection seen. IMPRESSION: Directed exam demonstrating probable reactive 2.2 cm left axillary lymph node. Correlate with follow-up clinical presentation and exam. If the mass or patient's symptoms fail to improve or worsen, repeat examination with ultrasound or alternatively soft tissue CT/MRI suggested. Reviewed, dictated and finalized at location A. RONMENTAL SERVICE AIDE IMPRESSION: Directed exam demonstrating probable reactive 2.2 cm left axillary lymph node. Correlate with follow-up clinical presentation and exam. If the mass or patient 's symptoms fail to improve or worsen, repeat examination with ultrasound or al ternatively soft tissue CT/MRI suggested.
== END 2025-07-04 08:03 | disposition home or self-care (01) ==
LOC: GOSHIMG 08:02
PROVIDERS: PCP Family Medicine; Visit Provider Nurse Practitioner Adult Health
DX: M79.622 Pain in left upper arm (principal); R59.9 Enlarged lymph nodes, unspecified
CPT/HCPCS: 76882